=== PATIENT | male | born 1990 | race Two or more races ===

== ENCOUNTER → 2021-02-01 11:10 | Outpatient (BNVA) | payer MEDICAID, SELFPAY | PROVIDERS: PCP Nurse Practitioner Family; Visit Provider Psychiatry & Neurology Neurology ==

== ENCOUNTER 2023-05-01 17:05 | Emergency (ER) | payer MEDICAID, SELFPAY ==
[2023-05-01 17:08] VITALS: BP 154/100; PULSE 122; RESP 18; TEMP 36.9; O2SAT 97; BMI 65.0
--- NOTE | 2023-05-01 17:08 | ED.GENADULT ---
HPI - General Adult General Chief complaint: Arrhythmia/Palpitations Stated complaint: heart palpitations Time Seen by Provider: 05/01/23 22:16 Source: patient Mode of arrival: ambulatory Limitations: no limitations History of Present Illness HPI narrative: 32-year-old male with history of hypertension presents with palpitations. Patient has been monitoring his blood pressure and heart rate at home. Been elevated. Has been compliant with his losartan and has amlodipine. Denies any chest pain, shortness breath or lightheadedness. Patient describes his symptoms more as an unoriented rather than severe. He notices worse at night. There is no clear relieving or exacerbating features. Patient also notes a vibration sense in his neck and head. Patient denies any headache, vision changes or focal neurologic deficits. Related Data Home Medications Medication Instructions Recorded Confirmed amlodipine 10 mg tablet 10 mg PO DAILY 02/01/21 losartan 100 mg tablet 100 mg PO DAILY 02/01/21 Previous Rx's Medication Instructions Recorded metoprolol tartrate 25 mg tablet 12.5 mg PO BID #20 tabs 05/01/23 Allergies Allergy/AdvReac Type Severity Reaction Status Date / Time No Known Allergies Allergy Verified 02/01/21 11:12 Review of Systems Review of Systems: CONSTITUTIONAL: Denies weight loss, fever and chills. HEENT: Denies changes in vision and hearing. RESPIRATORY: Denies SOB and cough. CV: + palpitations - CP. GI: Denies abdominal pain, nausea, vomiting and diarrhea. : Denies dysuria and urinary frequency. MSK: Denies myalgia and joint pain. SKIN: Denies rash and pruritus. NEUROLOGICAL: Denies headache and syncope. PSYCHIATRIC: Denies recent changes in mood. Denies anxiety and depression. All other ROS are negative unless in HPI [facility] Social History Social History Alcohol intake: never Advance Directives: No Advance Directives Information Provided: Yes Physical Exam ED Vital Signs: Vital Signs - 24 hr 05/01/23 17:08 05/01/23 21:47 Temperature 98.4 F 98.7 F Pulse Rate 122 H 112 H Respiratory Rate 18 20 Blood Pressure 154/100 H 134/96 H Pulse Oximetry 97 97 Oxygen Delivery Method Room Air Room Air BMI result Body Mass Index 65.0 GEN: Well developed, no acute distress, alert, oriented HEENT: Normocephalic, atraumatic, normal external ears, nose appears normal, no oropharyngeal edema or exudates Eyes: Normal to appearance Neck: Supple, no lymphadenopathy Respiratory: Talks in complete sentences, no respiratory distress, clear to auscultation bilaterally Cardiovascular: Regular rate and rhythm, no murmurs rubs or gallops Abdomen: Soft, nontender, nondistended, no guarding, no rebound Back: No CVA tenderness Extremities: No clubbing cyanosis or edema Neurologic: No focal neurologic deficits, cranial nerves 2-12 intact, strength is 5/5 bilaterally Skin: No rash Course Course Course Narrative: This is an RME: Additional HPI, ROS, PE not included below will be deferred to primary provider. Patient is a 32 year old male presenting from the [facility] [place] with palpitations that started yesterday. He states that he can feel his heart racing and palpitations in his neck. Plan: labs, EKG Reevaluation(s) Reevaluation #1: The workup is complete. Laboratory analysis not reveal any evidence of anemia, significant electrolyte abnormality. Cardiac monitoring did not identify any significant cardiac dysrhythmia. He remains in sinus tachycardia intermittently with normal sinus rate. Patient will follow-up with his primary care provider for reassessment of blood pressure and heart rate. In the meantime, I have recommend patient starting on metoprolol 12.5 mg twice daily. He can continue to monitor his blood pressure and heart rate. If his blood pressure and heart rate remain elevated, he can go ahead and increase that to 25 mg twice daily. I provided the patient with a 10 day regimen. Time: 22:56 Medical Decision Making Medical Decision Making MDM Narrative: 32-year-old male with hypertension presents with palpitations and elevated blood pressure readings. Examination is benign. EKG shows a sinus tachycardia. Differential diagnosis is sinus tachycardia, cardiac dysrhythmia such as atrial fibrillation, atrial flutter, SVT, hypertensive urgency. Plan will be to do routine laboratory analysis to rule out renal dysfunction, anemia, electrolyte abnormalities. Will place patient on a dehydrator operator while in the emergency department to assess for any cardiac dysrhythmia. He is noted to be elevated blood pressure and heart rate is approximately 100 and 105. Will provide patient with metoprolol 25 mg orally. Disposition is pending full workup. Patient may require hospitalization. Differential Diagnosis Differential Diagnoses: The differential diagnosis associated with the presentation includes (See above) Admission/Observation Consideration of admission/observation: Escalation of care including admission/observation considered Lab Data MDM Lab Attestation statement: I reviewed the patient's lab results. 05/01/23 17:32 05/01/23 17:32 Labs: Lab Results 05/01/23 05/01/23 05/01/23 Range/Units 17:32 17:32 17:32 WBC 9.1 (4.8-10.8) X10*3/uL RBC 5.16 (4.60-5.80) X10*6/uL Hgb 15.3 (14.0-18.0) g/dl Hct 44.4 (42.0-52.0) % MCV 86.0 (80.0-98.0) fL MCH 29.7 (27.0-33.0) pg MCHC 34.5 (31.0-36.0) g/dl RDW 12.4 (11.0-16.0) % Plt Count 344 (160-400) X10*3/uL MPV 10.1 (9.4-12.4) fL Immature Gran % (Auto) 0.3 (0.0-0.4) % Neut % (Auto) 65.7 (45-73) % Lymph % (Auto) 22.8 (20-40) % [place] % (Auto) 10.1 (2-11) % Eos % (Auto) 0.9 (0-4) % Baso % (Auto) 0.2 (0-2) % Lymph # (Auto) 2.1 (1.2-4.9) X10*3/uL [place] # (Auto) 0.9 (0.1-1.2) X10*3/uL Eos # (Auto) 0.1 (0.0-0.4) X10*3/uL Baso # (Auto) 0.0 (0.0-0.2) X10*3/uL Abs Immat Gran (auto) 0.03 (0.00-0.03) X10*3/uL Absolute Neuts (auto) 6.0 (2.0-8.3) x10*3/uL Absolute Nucleated RBC 0.000 (0.0-0.012) X10*3/uL Nucleated RBC % (auto) 0.0 (0.0-0.2) /100WBC D-Dimer High Sensitivty < 150 NG/ML Sodium 138 (135-145) mmol/L Potassium 3.9 (3.3-5.1) mmol/L Chloride 105 (96-108) mmol/L Carbon Dioxide 25 (22-29) mmol/L Anion Gap 12 (12-20) BUN 12 (9-16) mg/dL Creatinine 0.97 (0.5-1.4) mg/dL Estim Creat Clear Calc 181.7 Estimated GFR > 60 Random Glucose 112 (60-115) mg/dL Calcium 9.6 (8.4-10.2) mg/dL Magnesium 2.1 (1.6-2.6) mg/dL Total Bilirubin 0.9 (0.0-1.0) mg/dL AST 42 H (5-37) U/L ALT 78 H (0-40) U/L Alkaline Phosphatase 87 (39-117) U/L Troponin I High Sens (<3.5-35.0) ng/L B-Natriuretic Peptide (<100) pg/mL Total Protein 8.2 H (6.5-8.0) g/dL Albumin 4.1 (3.5-5.0) g/dL 05/01/23 05/01/23 Range/Units 17:32 17:32 WBC (4.8-10.8) X10*3/uL RBC (4.60-5.80) X10*6/uL Hgb (14.0-18.0) g/dl Hct (42.0-52.0) % MCV (80.0-98.0) fL MCH (27.0-33.0) pg MCHC (31.0-36.0) g/dl RDW (11.0-16.0) % Plt Count (160-400) X10*3/uL MPV (9.4-12.4) fL Immature Gran % (Auto) (0.0-0.4) % Neut % (Auto) (45-73) % Lymph % (Auto) (20-40) % [place] % (Auto) (2-11) % Eos % (Auto) (0-4) % Baso % (Auto) (0-2) % Lymph # (Auto) (1.2-4.9) X10*3/uL [place] # (Auto) (0.1-1.2) X10*3/uL Eos # (Auto) (0.0-0.4) X10*3/uL Baso # (Auto) (0.0-0.2) X10*3/uL Abs Immat Gran (auto) (0.00-0.03) X10*3/uL Absolute Neuts (auto) (2.0-8.3) x10*3/uL Absolute Nucleated RBC (0.0-0.012) X10*3/uL Nucleated RBC % (auto) (0.0-0.2) /100WBC D-Dimer High Sensitivty NG/ML Sodium (135-145) mmol/L Potassium (3.3-5.1) mmol/L Chloride (96-108) mmol/L Carbon Dioxide (22-29) mmol/L Anion Gap (12-20) BUN (9-16) mg/dL Creatinine (0.5-1.4) mg/dL Estim Creat Clear Calc Estimated GFR Random Glucose (60-115) mg/dL Calcium (8.4-10.2) mg/dL Magnesium (1.6-2.6) mg/dL Total Bilirubin (0.0-1.0) mg/dL AST (5-37) U/L ALT (0-40) U/L Alkaline Phosphatase (39-117) U/L Troponin I High Sens 3.4 (<3.5-35.0) ng/L B-Natriuretic Peptide < 10 (<100) pg/mL Total Protein (6.5-8.0) g/dL Albumin (3.5-5.0) g/dL Independent Interpretation I performed an independent interpretation of an: EKG (Sinus tachycardia heart rate 105, normal intervals, no acute ST elevations or depressions.) Prescription Management I considered prescription management with: Other (Antihypertensive) Chronic Conditions Patient?s care impacted by: Hypertension Discharge Plan Discharge Clinical Impression: Palpitations Patient Disposition: Home, Self-Care Instructions: Heart Palpitations (ED) Prescriptions: New metoprolol tartrate 25 mg tablet 12.5 mg PO BID Qty: 20 0RF No Action losartan 100 mg tablet 100 mg PO DAILY amlodipine 10 mg tablet 10 mg PO DAILY Referrals: Elicia Hanson [Primary Care Provider] - 3 days (HR and BP measurement)
--- NOTE | 2023-05-01 17:09 | ECG_ITS ---
Test Reason : TACHYCARDIA Blood Pressure : / mmHG Vent. Rate : 105 BPM Atrial Rate : 105 BPM P-R Int : 182 ms QRS Dur : 092 ms QT Int : 326 ms P-R-T Axes : 028 010 026 degrees QTc Int : 430 ms Sinus tachycardia Otherwise normal ECG No previous ECGs available Referred By: Berny Ordaz Electronically Signed By:ODALYS DORSEY
[2023-05-01 17:39] LABS: MANUAL DIFF FLAG NO
[2023-05-01 17:42] LABS: Basophils Percent Auto 0.2 % (0-2); Eosinophils Absolute Auto 0.1 X10*3/uL (0.0-0.4); Eosinophils Percent Auto 0.9 % (0-4); Hematocrit 44.4 % (42.0-52.0); Hemoglobin 15.3 g/dl (14.0-18.0); Imm Gran Abs Auto 0.03 X10*3/uL (0.00-0.03); Imm Gran Pct Auto 0.3 % (0.0-0.4); Lymphocytes Absolute Auto 2.1 X10*3/uL (1.2-4.9); Lymphocytes Percent Auto 22.8 % (20-40); Mean Corpuscular HGB Conc 34.5 g/dl (31.0-36.0); Mean Corpuscular Hemoglobin 29.7 pg (27.0-33.0); Mean Platelet Volume 10.1 fL (9.4-12.4); Monocytes Absolute Auto 0.9 X10*3/uL (0.1-1.2); Monocytes Percent Auto 10.1 % (2-11); Neutrophils Percent Auto 65.7 % (45-73); Platelet Count 344 X10*3/uL (160-400); Red Blood Count 5.16 X10*6/uL (4.60-5.80); Red Cell Distribution Width 12.4 % (11.0-16.0); White Blood Count 9.1 X10*3/uL (4.8-10.8)
[2023-05-01 17:56] LABS: Alanine Aminotransferase 78 U/L (0-40); Albumin Level 4.1 g/dL (3.5-5.0); Alkaline Phosphatase 87 U/L (39-117); Anion Gap 12 (12-20); Aspartate Amino Transferase 42 U/L (5-37); Bilirubin Total 0.9 mg/dL (0.0-1.0); Blood Urea Nitrogen 12 mg/dL (9-16); Calcium 9.6 mg/dL (8.4-10.2); Carbon Dioxide 25 mmol/L (22-29); Chloride 105 mmol/L (96-108); Creatinine Clr Calc Pharmacy 181.7; Estimated Glomerular Filt Rate > 60; Glucose Random 112 mg/dL (60-115); Magnesium 2.1 mg/dL (1.6-2.6); Potassium 3.9 mmol/L (3.3-5.1); Sodium 138 mmol/L (135-145); Total Protein 8.2 g/dL (6.5-8.0)
[2023-05-01 18:01] LABS: B Type Natriuretic Peptide < 10 pg/mL (<100)
[2023-05-01 18:03] LABS: Troponin-I High Sensitivity 3.4 ng/L (<3.5-35.0)
[2023-05-01 18:22] LABS: D Dimer High Sensitivity < 150 NG/ML
[2023-05-01 21:47] VITALS: BP 134/96; PULSE 112; RESP 20; TEMP 37.1; O2SAT 97
--- NOTE | 2023-05-01 21:48 | PC.NURSE ---
this rn assumed care of pt @ [id number] from waiting room. pt placed on property assessment monitor. pt changed into hospital gown awaiting to be seen by ed provider
[2023-05-01 22:53] VITALS: BP 162/99; PULSE 92
[2023-05-01] MEDS: Metoprolol Tartrate 25 MG TABLET PO (22:53)
[2023-05-01 23:35] VITALS: BP 134/86; PULSE 98; RESP 26; O2SAT 95
--- NOTE | 2023-05-01 23:41 | PC.NURSE ---
pt calm and cooperative. vss. pt ambulatory at discharge. pt provided with discharge packet. pt verbalized understanding of discharge plan
== END 2023-05-01 23:43 | disposition home or self-care (01) ==
PROVIDERS: Physician Assistant; Emergency Provider Emergency Medicine; PCP Nurse Practitioner Family
DX: R00.2 Palpitations (principal); R00.0 Tachycardia, unspecified; I10 Essential (primary) hypertension; E66.9 Obesity, unspecified; Z68.44 Body mass index [BMI] 60.0-69.9, adult; Z79.899 Other long term (current) drug therapy
CPT/HCPCS: 36415; 80053; 83735; 83880; 84484; 85025; 85379; 93005; 99284

== ENCOUNTER 2023-06-30 15:42 | Emergency (ER) | payer MEDICAID, SELFPAY ==
--- NOTE | ~2023-06-30 | XR_ITS ---
EXAMINATION: XR chest 2V CLINICAL INFORMATION: Chest pain COMPARISON: No prior chest x-ray available in our system for comparison at the time of this dictation. TECHNIQUE: XR chest 2V, 2 Views, exam limited soft tissue overlap motion artifact on lateral view. Lungs and Blanca: Both lungs are clear. Pleura: Normal. Costophrenic angles are sharp. No pneumothorax. Heart: The heart is normal in size. Mediastinum: The mediastinum is within normal limits.. Bones: Skeletal structures included are normal for patient's age. XR/XR chest 2V IMPRESSION: Limited this study motion artifact soft tissue overlap. No radiographic evidence of acute cardiopulmonary disease.
--- NOTE | 2023-06-30 15:45 | ECG_ITS ---
Test Reason : CHEST PAIN Blood Pressure : / mmHG Vent. Rate : 105 BPM Atrial Rate : 105 BPM P-R Int : 178 ms QRS Dur : 090 ms QT Int : 352 ms P-R-T Axes : 019 008 029 degrees QTc Int : 465 ms Sinus tachycardia artifact Otherwise normal ECG When compared with ECG of 01-MAY-2023 17:38, No significant changes seen Referred By: Tatiana Wooten Electronically Signed By:JAYLIN GARDUNO MD
[2023-06-30 15:58] VITALS: BP 181/104; PULSE 114; RESP 17; TEMP 37.1; O2SAT 98; BMI 63.3
--- NOTE | 2023-06-30 15:59 | ED_ITS ---
HPI - Chest Pain General Chief Complaint: Chest Pain Stated Complaint: Chest tightness, high blood pressure Time Seen by Provider: 06/30/23 21:18 Source: patient Mode of arrival: ambulatory Limitations: no limitations History of Present Illness HPI narrative: Patient is a 32 year old assigned male at with a history of HTN presenting to the emergency department today with palpitations. Patient states that he was seen for this a little while ago and was started on Metoprolol. Patient states that was initially helping but now it doesn't seem to be. Patient denies any dizziness, lightheadedness, abdominal pain, nausea, vomiting, fever, chills, blurry vision, double vision, loss of vision, chest pain, difficulty breathing, shortness of breath, back pain, night sweats, pain with urination, increased urinary frequency, increased urinary urgency, blood in his urine or stool, syncope or a near syncopal episode, recent trauma or falls, bowel incontinence, bladder incontinence, bowel retention, bladder retention, or any other complaints at this time. Treatment prior to arrival: none Related Data Home Medications Medication Instructions Recorded Confirmed amlodipine 10 mg tablet 10 mg PO DAILY 02/01/21 losartan 100 mg tablet 100 mg PO DAILY 02/01/21 Previous Rx's Medication Instructions Recorded metoprolol tartrate 25 mg tablet 12.5 mg (1/2 x 25 mg) PO BID #20 05/01/23 tabs metoprolol succinate 50 mg 50 mg PO DAILY #30 tabs 06/30/23 tablet,extended release 24 hr Allergies Allergy/AdvReac Type Severity Reaction Status Date / Time No Known Allergies Allergy Verified 02/01/21 11:12 Review of Systems 2 Constitutional: Constitutional: Reports no additional constitutional complaints, Denies chills, Denies fever(s) and Denies night sweats Eyes: Eyes: Reports no additional eye complaints, Denies blurry vision, Denies change in vision, Denies diplopia, Denies eye discharge, Denies loss of vision and Denies eye pain ENT: Denies dizziness Cardiovascular: Cardiovascular: Reports no additional cardiovascular complaints, Denies chest pain, Denies lightheadedness, Denies Loss of Consciousness, Reports palpitations and Denies dyspnea Respiratory: Respiratory: Reports no additional respiratory complaints and Denies dyspnea Gastrointestinal: Gastrointestinal: Reports no additional gastrointestinal complaints, Denies abdominal pain, Denies melena, Denies hematochezia, Denies change in bowel habits and Denies change in stool character Genitourinary: Genitourinary: Reports no additional male genitourinary complaints, Denies hematuria, Denies oliguria, Denies difficulty urinating, Denies dysuria, Denies urinary frequency, Denies urinary hesitancy, Denies urinary incontinence and Denies urinary urgency Musculoskeletal: Musculoskeletal: Reports no additional musculoskeletal complaints, Denies numbness and Denies tingling Neurologic: Denies dizziness, Denies loss of vision, Denies numbness and Denies tingling Psychiatric: Psychiatric: Reports no additional psychiatric complaints Endocrine: Endocrine: Reports no additional endocrine complaints and Reports palpitations Hematologic/Lymphatic: Hematologic/Lymphatic: Reports no additional hematologic/lymphatic complaints Allergic/Immunologic: Allergic/Immunologic: Reports no additional allergic/immunologic complaints PMFSH Past Medical History Attestation statement: The following information was validated with the patient. Source: old records reviewed and nursing notes reviewed Social History Social History Alcohol intake: never Advance Directives: No Advance Directives Information Provided: Yes Physical Exam 2 Vital Signs: Vital Signs: Last Vital Signs Temp 99.2 F 06/30/23 21:49 Pulse 86 06/30/23 21:49 Resp 18 06/30/23 21:49 BP 178/99 H 06/30/23 21:49 Pulse Ox 99 06/30/23 21:49 O2 Del Method Room Air 06/30/23 21:49 BMI result Body Mass Index 63.3 Const: General: cooperative, no acute distress, alert and awake Nutritional Appearance: well nourished Orientation/consciousness: patient oriented x3 Limitations: no limitations HEENT: Head: Yes normal to inspection and Yes atraumatic Ears: hearing grossly normal bilaterally and external ears normal General nose exam: Normal external nose present, no nasal discharge noted and no epistaxis Face and sinus: Yes normal facial exam, No abrasion and No laceration Mouth: Normal oral and palatal mucosa present, no drooling and no muffled voice Eyes: General: appearance normal, both eyes and all related structures P eriorbital: periorbital findings normal Eyelids: Yes eyelids normal C onjunctivae: conjunctivae normal Pupils: Equal, round and reactive pupils present EOM: EOMs intact bilaterally Neck: Neck: Yes normal visual inspection, Yes full ROM and Yes no lymphadenopathy Chest: Chest palpation & inspection: normal inspection of the chest Resp: Effort & Inspection: normal respiratory effort and able to speak in complete sentences Auscultation: clear to auscultation bilaterally Cardio: Rate: regular rate Rhythm: regular rhythm GI: Inspection: Yes normal to inspection Neuro: General: patient oriented x3 and moves all extremities Cranial nerves: Yes Equal, round and reactive pupils present Cognition (Neuro): n ormal cognition Motor exam (neuro): 5/5 motor strength present throughout Sensory Exam: Normal double simultaneous stimulation for sensation C oordination: [id number] test normal Extrem: General: Yes normal to inspection, Yes full ROM and Yes capillary refill normal Psych: Appearance: grossly normal Mental Status: mental status grossly normal Affect: normal affect Attitude: cooperative Thought process: N ormal thought process present Thought content: Normal thought content present Insight: Good insight present (Psych) Course Course Course Narrative: This is a rapid medical exam. Deferred additional HPI, ROS, PE to primary provider. 32 yo male with history of obesity, HTN here with complaints of chest tightness x 3 days. Has been working on managing blood pressure with his PCP. Will obtain labs, EKG, CXR VSS Medications Administered Discontinued Medications Generic Name Dose Route Start Last Admin Trade Name Freq PRN Reason Stop Dose Admin Metoprolol Tartrate 25 mg 06/30/23 21:41 06/30/23 21:53 Metoprolol Tartrate 25 Mg Tablet PO 06/30/23 21:42 25 mg ONCE ONE Administration Protocol Medical Decision Making Medical Decision Making MDM Narrative: Patient is a 32 year old assigned male at with a history of HTN presenting to the emergency department today with palpitations. Patient's physical exam was unremarkable. Patient's blood work was unremarkable. Patient's EKG was unremarkable. Patient's chest x-ray showed no acute process. Patient was taking 12.5mg of Metoprolol Tartrate. I consulted with my attending physicain Dr. Sabina Kumar and together we determined that the best course of action for this patient would be switching him to Metoprolol Succinate 50mg PO Daily. I explained my physical exam findings as well as all test results to the patient. I answered all questions asked by the patient. I stressed the importance of the patient taking his medication as prescribed. I stressed the importance of the patient following up with his primary care provider and a ceramic tile installation helper. I stressed the importance of the patient returning to the emergency department immediately if his symptoms were to worsen or if he were to develop any dizziness, shortness of breath, difficulty breathing, chest pain, blurry vision, loss of vision, nausea, vomiting, abdominal pain, fever, chills, back pain, or any other complaints. Patient verbalized agreement and understanding with this treatment plan and discharge. Differential Diagnosis Differential Diagnoses: The differential diagnosis associated with the presentation includes Palpitations Arrhythmia NSTEMI STEMI Admission/Observation Consideration of admission/observation: Escalation of care including admission/observation considered Patient would have been admitted to the hospital had his work up had any findings where hospital admission was appropriate and his clinical presentation warranted hospital admission. Lab Data MDM Lab Attestation statement: I reviewed the patient's lab results. My interpretation of these studies and their corresponding values is that they are grossly normal. 06/30/23 16:35 06/30/23 16:35 Labs: Lab Results 06/30/23 Range/Units 16:35 WBC 8.9 (4.8-10.8) X10*3/uL RBC 5.18 (4.60-5.80) X10*6/uL Hgb 15.3 (14.0-18.0) g/dl Hct 44.3 (42.0-52.0) % MCV 85.5 (80.0-98.0) fL MCH 29.5 (27.0-33.0) pg MCHC 34.5 (31.0-36.0) g/dl RDW 12.4 (11.0-16.0) % Plt Count 341 (160-400) X10*3/uL MPV 10.5 (9.4-12.4) fL Immature Gran % (Auto) 0.2 (0.0-0.4) % Neut % (Auto) 61.6 (45-73) % Lymph % (Auto) 26.7 (20-40) % [place] % (Auto) 9.9 (2-11) % Eos % (Auto) 1.2 (0-4) % Baso % (Auto) 0.4 (0-2) % Lymph # (Auto) 2.4 (1.2-4.9) X10*3/uL [place] # (Auto) 0.9 (0.1-1.2) X10*3/uL Eos # (Auto) 0.1 (0.0-0.4) X10*3/uL Baso # (Auto) 0.0 (0.0-0.2) X10*3/uL Abs Immat Gran (auto) 0.02 (0.00-0.03) X10*3/uL Absolute Neuts (auto) 5.5 (2.0-8.3) x10*3/uL Absolute Nucleated RBC 0.000 (0.0-0.012) X10*3/uL Nucleated RBC % (auto) 0.0 (0.0-0.2) /100WBC Sodium 137 (135-145) mmol/L Potassium 3.7 (3.3-5.1) mmol/L Chloride 105 (96-108) mmol/L Carbon Dioxide 21 L (22-29) mmol/L Anion Gap 15 (12-20) BUN 10 (9-16) mg/dL Creatinine 0.93 (0.5-1.4) mg/dL Estim Creat Clear Calc 192.1 Estimated GFR > 60 Random Glucose 116 H (60-115) mg/dL Calcium 9.7 (8.4-10.2) mg/dL Total Bilirubin 0.7 (0.0-1.0) mg/dL Direct Bilirubin 0.3 (0.0-0.5) mg/dL AST 41 H (5-37) U/L ALT 79 H (0-40) U/L Alkaline Phosphatase 90 (39-117) U/L Troponin I High Sens < 2.7 (<3.5-35.0) ng/L Total Protein 8.0 (6.5-8.0) g/dL Albumin 4.1 (3.5-5.0) g/dL Independent Interpretation I performed an independent interpretation of an: EKG and Plain X-Ray Interpretation: My interpretation is in agreement with the radiologist's impression of this imaging study. - EXAMINATION: XR chest 2V CLINICAL INFORMATION: Chest pain COMPARISON: No prior chest x-ray available in our system for comparison at the time of this dictation. TECHNIQUE: XR chest 2V, 2 Views, exam limited soft tissue overlap motion artifact on lateral view. Lungs and Blanca: Both lungs are clear. Pleura: Normal. Costophrenic angles are sharp. No pneumothorax. Heart: The heart is normal in size. Mediastinum: The mediastinum is within normal limits.. Bones: Skeletal structures included are normal for patient's age. XR/XR chest 2V IMPRESSION: Limited this study motion artifact soft tissue overlap. No radiographic evidence of acute cardiopulmonary disease. Dictated By: Ricky Edmonds MD Signed By: Electronically signed by Ricky Edmonds MD 06/30/23 1627 - Vent. Rate: 105 BPM Atrial Rate: 105 BPM P-R Int: 178 ms QRS Dur: 090 ms QT Int: 352 ms P-R-T Axes: 019 008 029 degrees QTc Int: 465 ms Sinus tachycardia Cannot rule out Inferior infarct , age undetermined Cannot rule out Anterior infarct , age undetermined T wave abnormality, consider lateral ischemia Abnormal ECG When compared with ECG of 01-MAY-2023 17:38, T wave inversion now evident in Anterior leads DD/ 1550 Radiology Impression Discussion of test interpretation with radiology: I have reviewed the radiologist's reading. Discharge Plan Discharge Clinical Impression: Palpitations Patient Disposition: Home, Self-Care Instructions: Heart Palpitations (DC) Additional Instructions: Follow up with your primary care provider and a ceramic tile installation helper. Return to the emergency department immediately if your symptoms worsen or if you develop any dizziness, shortness of breath, difficulty breathing, chest pain, blurry vision, loss of vision, nausea, vomiting, abdominal pain, fever, chills, back pain, or any other complaints. Prescriptions: New metoprolol succinate 50 mg tablet extended release 24 hr 50 mg PO DAILY Qty: 30 0RF No Action metoprolol tartrate 25 mg tablet 12.5 mg PO BID Qty: 20 0RF losartan 100 mg tablet 100 mg PO DAILY amlodipine 10 mg tablet 10 mg PO DAILY Referrals: [facility] [Provider Group] (Call to establish and follow up with a ceramic tile installation helper.) Norma Vasquez MD [Primary Care Provider] - Stand Alone Forms: Work/School Release Interventions: ED Discharge Assessment Last Done: 06/30/23 21:54 Discharge Date/Time: 06/30/23 21:56 Print Language: Slovak
[2023-06-30 16:53] LABS: MANUAL DIFF FLAG NO
[2023-06-30 17:11] LABS: Alanine Aminotransferase 79 U/L (0-40); Albumin Level 4.1 g/dL (3.5-5.0); Alkaline Phosphatase 90 U/L (39-117); Anion Gap 15 (12-20); Aspartate Amino Transferase 41 U/L (5-37); Bilirubin Direct 0.3 mg/dL (0.0-0.5); Bilirubin Total 0.7 mg/dL (0.0-1.0); Blood Urea Nitrogen 10 mg/dL (9-16); Calcium 9.7 mg/dL (8.4-10.2); Carbon Dioxide 21 mmol/L (22-29); Chloride 105 mmol/L (96-108); Creatinine Clr Calc Pharmacy 192.1; Estimated Glomerular Filt Rate > 60; Glucose Random 116 mg/dL (60-115); Potassium 3.7 mmol/L (3.3-5.1); Sodium 137 mmol/L (135-145)
[2023-06-30 17:14] LABS: Basophils Percent Auto 0.4 % (0-2); Eosinophils Absolute Auto 0.1 X10*3/uL (0.0-0.4); Eosinophils Percent Auto 1.2 % (0-4); Hematocrit 44.3 % (42.0-52.0); Hemoglobin 15.3 g/dl (14.0-18.0); Imm Gran Abs Auto 0.02 X10*3/uL (0.00-0.03); Imm Gran Pct Auto 0.2 % (0.0-0.4); Lymphocytes Absolute Auto 2.4 X10*3/uL (1.2-4.9); Lymphocytes Percent Auto 26.7 % (20-40); Mean Corpuscular HGB Conc 34.5 g/dl (31.0-36.0); Mean Corpuscular Hemoglobin 29.5 pg (27.0-33.0); Mean Corpuscular Volume 85.5 fL (80.0-98.0); Mean Platelet Volume 10.5 fL (9.4-12.4); Monocytes Absolute Auto 0.9 X10*3/uL (0.1-1.2); Monocytes Percent Auto 9.9 % (2-11); Neutrophils Absolute Auto 5.5 x10*3/uL (2.0-8.3); Neutrophils Percent Auto 61.6 % (45-73); Platelet Count 341 X10*3/uL (160-400); Red Blood Count 5.18 X10*6/uL (4.60-5.80); Red Cell Distribution Width 12.4 % (11.0-16.0); White Blood Count 8.9 X10*3/uL (4.8-10.8)
[2023-06-30 17:19] LABS: Troponin-I High Sensitivity < 2.7 ng/L (<3.5-35.0)
[2023-06-30 20:03] VITALS: BP 175/106; PULSE 103; RESP 20; TEMP 36.5; O2SAT 99
[2023-06-30 21:49] VITALS: BP 178/99; PULSE 86; RESP 18; TEMP 37.3; O2SAT 99
[2023-06-30] MEDS: Metoprolol Tartrate 25 MG TABLET PO (21:53)
== END 2023-06-30 21:56 | disposition home or self-care (01) ==
PROVIDERS: Nurse Practitioner Family; Emergency Provider Emergency Medicine; PCP Student in an Organized Health Care Education/Training Program
DX: R00.2 Palpitations (principal); I10 Essential (primary) hypertension; R07.9 Chest pain, unspecified; E66.9 Obesity, unspecified; Z68.44 Body mass index [BMI] 60.0-69.9, adult
CPT/HCPCS: 36415; 71046; 80048; 80076; 84484; 85025; 93005; 99284

== ENCOUNTER 2023-08-16 12:43 | Outpatient (AMB) | payer MEDICAID, SELFPAY ==
--- NOTE | 2023-08-16 13:08 | A.OFFVIS_ITS ---
Intake Vital Signs 08/16/23 13:13 Height 5 ft 9 in Weight 427 lb 11.148 oz BMI 63.2 BP 140/90 H Blood Pressure Location Lt brachial Position Sitting Pulse 103 H Intake Visit Reasons: NPV/Palpitations/E. 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 He does not have any known cardiac issues including coronary disease or myocardial infarction or cardiomyopathy or in fact anything cardiac sounding. He is morbidly obese and weighs more than 400 lb. He has hypertension on medications. His main complaint is that he constantly feels his heart running fast/racing. This can happen any time and he can feel this way for hours. No documented arrhythmias in the past. Otherwise, he denies any anginal-type symptoms or shortness of breath or any other symptoms. His main concern is the palpitations. Otherwise, he is on appropriate medications for hypertension. Has not been evaluated in the past for PETER. [facility] Medical History (Updated 08/16/23 @ 13:29 by Obdulio Ball MD) Essential hypertension Surgical History (Updated 08/16/23 @ 13:12 by Sangeeta Sequeira) No pertinent past surgical history Family History (Updated 08/16/23 @ 13:13 by Sangeeta Sequeira) Mother No problems noted. Father No problems noted. Social History Alcohol intake: never Review of Systems Const Denies chills, Denies daytime sleepiness, Denies fatigue, Denies fever(s), Denies frequent falls, Denies night sweats, Denies snoring, Denies weakness, Denies weight gain and Denies weight loss Eyes Denies loss of vision ENT Denies hearing loss Card Denies chest pain with activity, Denies syncope, Denies edema, Denies claudication, Denies leg edema, Denies dyspnea, Denies dyspnea on exertion and Denies orthopnea Resp Denies cough, Denies excessive phlegm production, Denies dyspnea, Denies dyspnea on exertion, Denies snoring and Denies wheezing GI Denies abdominal pain, Denies hematochezia, Denies change in bowel habits, Denies change in stool character, Denies heartburn, Denies nausea and Denies vomiting Denies hematuria, Denies dysuria and Denies urinary frequency Musc Denies arthralgias, Denies muscle weakness, Denies numbness and Denies tingling Skin/Breast Denies nail changes and Denies rash Neuro Denies Abnormal speech present, Denies syncope, Denies frequent falls, Denies loss of vision, Denies memory loss, Denies numbness, Denies tingling and Denies weakness Psych Denies depression and Denies memory loss Endo Denies fatigue Aller/Immun Denies wheezing Physical Exam Vital Signs: Last Vital Signs Pulse 103 H 08/16/23 13:13 BP 140/90 H 08/16/23 13:13 BMI result Body Mass Index 63.2 Const General: comfortable and no acute distress Orientation/consciousness: patient oriented x3 HEENT Other: Unremarkable Head: Yes normal to inspection Neck Neck: Yes normal visual inspection Chest Chest palpation & inspection: normal inspection of the chest Resp Auscultation: clear to auscultation bilaterally Cardio Palpation: normal PMI Heart sounds: S1 normal heart sound present, S2 normal heart sound present, no gallops, no murmurs and no rubs GI Palpation (GI): Soft to palpation Back/Spine/Pelvis Other: unremarkable Skin General skin exam: no rashes or lesions noted Neuro General: patient oriented x3 Speech: No Abnormal speech present Extrem General: Yes normal to inspection Psych Mental Status: mental status grossly normal Assessment & Plan Assessment & Plan (1) Palpitations: Code(s): R00.2 - Palpitations (2) Obesity: Code(s): E66.9 - Obesity, unspecified Qualifiers: Obesity classification: adult class 3 (BMI >= 40) (3) Essential hypertension: Code(s): I10 - Essential (primary) hypertension Plan EKG from last month with mild sinus tachycardia at 105/min; no significant ST-T changes; normal IN and corrected QT. previous EKG from April also similar. Overall, possibly some sinus tachycardia related to obesity. He also needs evaluation for atrial arrhythmias like atrial fibrillation considering his obesity as well as hypertension. We will start an echocardiogram for cardiac assessment. Holter monitor can be completed. We will start with a 48 hour monitor but if necessary, can do something more prolonged. Also complete a home sleep study to evaluate for obstructive sleep apnea. Once these are completed, we can see him back in follow-up. He remains on beta- blockers and that can be continued. We can adjust dosing based on findings from above. Orders: Orders ECG holter monitor 48 hour Today R00.2 - Palpitations CA echo transthoracic complete Today E66.9 - Obesity, unspecified, I10 - Essential (primary) hypertension, R00.2 - Palpitations RT home sleep study Today G47.33 - Obstructive sleep apnea (adult) (pediatric) Coding Level of Care Code New Pt Level 4 (22257) Diagnoses Palpitations R00.2 Obesity E66.9 Obesity classification: adult class 3 (BMI >= 40) Essential hypertension I10
[2023-08-16 13:13] VITALS: BP 140/90; PULSE 103; BMI 63.2
== END 2023-08-16 13:37 | disposition home or self-care (01) ==
PROVIDERS: PCP Nurse Practitioner Family; Visit Provider Internal Medicine
DX: R00.2 Palpitations (principal); E66.9 Obesity, unspecified; I10 Essential (primary) hypertension
CPT/HCPCS: 99204

== ENCOUNTER → 2023-08-16 12:43 | Outpatient (BNVA) | payer MEDICAID, SELFPAY | PROVIDERS: PCP Nurse Practitioner Family; Visit Provider Internal Medicine | DX: R00.2 Palpitations (principal); I10 Essential (primary) hypertension; E66.9 Obesity, unspecified; Z68.44 Body mass index [BMI] 60.0-69.9, adult | CPT/HCPCS: 99202 ==

== ENCOUNTER → 2023-09-06 10:37 | Outpatient (REF) | payer MEDICAID, SELFPAY ==
--- NOTE | 2023-09-06 10:42 | CA_ITS ---
Transthoracic Echocardiogram Patient (Last, First, Middle): Duran Baca, Gender: Male Date of : 1990 Age: 33 Procedure Date: 09/06/2023 Procedure Type: Transthoracic Echocardiogram Location: OP Height: 172.72 cm Weight: 189.01 kg BSA: 2.79 m2 Heart Rate: 79 bpm BP: 120 / 90 mmHg Shore Working Supervisor: RICHARD Hermosillo MD: Obdulio Ball MD Aluminum Hydroxide Process Operator: Michael Perez MD Symptoms: R00.2 - Palpitations Study Quality: Fair ECG Rhythm: Sinus Conclusions: - 1. Normal LV ejection fraction 55-60% 2. Normal cardiac valvular Doppler 3. Upper limits of normal ascending aortic size Findings Left Ventricle Normal left ventricular size, thickness, and systolic function. The visually estimated ejection fraction is between 55-60%. Spectral Doppler is indicative of a normal filling pattern. Peak GLS is -16.4%, which is mildly reduced. Right Ventricle Normal right ventricular cavity size. Atria The left atrium is normal in size. Interatrial shunt cannot be excluded. The right atrium was not well visualized. Aortic Valve The aortic valve structure and function is likely normal. There is no aortic valve stenosis. There is no aortic valve regurgitation. Mitral Valve Likely normal mitral valve structure and function. There is no mitral valve regurgitation. There is no mitral valve stenosis. Pulmonic Valve The pulmonic valve was not well visualized. Tricuspid Valve Likely normal tricuspid valve structure and function. There is trace tricuspid valve regurgitation. Normal right atrial pressure. Great Vessels The pulmonary artery was not well visualized. Pericardium/Pleural The pericardium was not well visualized. Prior Study Comparison No prior study available for comparison. Measurements 2D Linear Measurements IVSd: 1.19 0.6-0.9/0.6-1.0 cm LVIDd: 5.21 3.9-5.3/4.2-5.9 cm LVIDd Index: 1.87 2.4-3.2/2.2-3.1 cm/m2 LVIDs: 3.42 2.0-3.6 cm LVPWd: 1.10 0.7-1.1 cm LA Diam: 3.90 2.7-3.8/3.0-4.0 cm LAIDs Index: 1.40 1.5-2.3 cm/m2 LV Mass: 291.67 67-162/88-224 g LV Mass Index: 104.54 43-95/49-115 g/m2 LVOT Diam: 1.90 3.0+(-)1.3 cm 2D Systolic Function EF 4C: 60.80 >55% EF 2C: 60.60 >55% EF BiP: 58.20 >55% Mitral Valve MV Pk E: 0.80 MV PK A: 0.77 MV Decel Time: 243.00 E/A: 1.00 E'Lateral: 7.83 E'Medial: 8.49 E/E' Med: 9.40 E/E' Lat: 10.20 PHT: 71.00 MVA PHT: 3.10 Decel [place]: 3.28 Aortic Valve AoV Pk Jimbo: 1.34 AoV Mn Jimbo: 0.98 AoV VTI: 0.26 AoV Pk Grad: 7.00 Aov Mn Grad: 4.00 EDEN Cont.VTI: 2.19 LVOT LVOT Pk Jimbo: 0.97 LVOT Mn Jimbo: 0.74 LVOT VTI: 0.20 LVOT Pk Grad: 4.00 LVOT Mn Grad: 2.00 LVOT Diam: 1.90 LVOT Area: 2.84 Diastolic Function MV Pk E: 0.80 MV Pk A: 0.77 E/A: 1.00 E'Medial: 8.49 E/E' Med: 9.40 E' Laterial: 7.83 E/E' Lat: 10.20 Right Ventricle TAPSE (mm): 26.30 TVS' Jimbo: 13.70 Tricuspid Valve TR Pk Jimbo: 2.19 TR Pk Grad: 19.00 Great Vessels Aorta Sinus of Valsalva: 3.40 2.0-3.5 cm Ao Asc: 3.60 2.1-3.4 cm Pulmonary Valve PV Pk Jimbo: 1.28 Peak PV Grad: 7.00 Updated in Other Vendor System with Status of Final Michael Perez MD electronically signed on 09/07/2023 10:01:13 AM with status of Final
--- NOTE | 2023-09-06 10:42 | HM_ITS ---
* Total monitoring time 2 days. * Underlying rhythm is sinus with an average rate of 83/Min. Range 68 to 134/Min. * Rare supraventricular ectopy. * Rare ventricular ectopy. One triplet. * No significant pauses or AV blocks. * No patient markers or events in diary. MTDD
== END ==
LOC: HO.CARD 10:37
PROVIDERS: PCP Nurse Practitioner Family; Visit Provider Internal Medicine
DX: R00.2 Palpitations (principal); I10 Essential (primary) hypertension; E66.9 Obesity, unspecified
CPT/HCPCS: 93225; 93306; 93356

== ENCOUNTER → 2023-09-06 10:42 | Outpatient (BNV) | payer MEDICAID, SELFPAY | PROVIDERS: PCP Nurse Practitioner Family; Visit Provider Internal Medicine Cardiovascular Disease | DX: I47.10 Supraventricular tachycardia, unspecified (principal) | CPT/HCPCS: 93227; 93306 ==

== ENCOUNTER 2023-09-11 10:53 | Outpatient (REF) | payer MEDICAID, SELFPAY ==
[2023-09-11 13:18] LABS: Hematocrit 43.1 % (42.0-52.0); Hemoglobin 14.5 g/dl (14.0-18.0); Mean Corpuscular HGB Conc 33.6 g/dl (31.0-36.0); Mean Corpuscular Hemoglobin 30.2 pg (27.0-33.0); Mean Corpuscular Volume 89.8 fL (80.0-98.0); Mean Platelet Volume 10.6 fL (9.4-12.4); Platelet Count 316 X10*3/uL (160-400); Red Cell Distribution Width 13.2 % (11.0-16.0); White Blood Count 8.2 X10*3/uL (4.8-10.8)
[2023-09-11 13:32] LABS: Estimated Average Glucose 105 mg/dL; Hemoglobin A1c % 5.3 % (<6.0)
[2023-09-11 13:42] LABS: Alanine Aminotransferase 63 U/L (0-40); Albumin Level 3.9 g/dL (3.5-5.0); Alkaline Phosphatase 79 U/L (39-117); Anion Gap 14 (12-20); Aspartate Amino Transferase 32 U/L (5-37); Bilirubin Total 0.9 mg/dL (0.0-1.0); Blood Urea Nitrogen 15 mg/dL (9-16); Calcium 9.5 mg/dL (8.4-10.2); Carbon Dioxide 28 mmol/L (22-29); Chloride 103 mmol/L (96-108); Cholesterol 179 mg/dL (<200); Estimated Glomerular Filt Rate > 60; Glucose Random 122 mg/dL (60-115); HDL Cholesterol 43 mg/dL (>40); LDL Cholesterol Calculated 114 mg/dL (<100); Sodium 141 mmol/L (135-145); Total Protein 7.8 g/dL (6.5-8.0); Triglycerides 110 mg/dL (<150)
[2023-09-11 13:49] LABS: TSH reflex Free T4 2.21 uIU/mL (0.32-4.0); Vitamin D 25-OH Total 24.8 ng/mL (>30)
[2023-09-11 14:10] LABS: Syphilis Screen Nonreactive (Nonreactive)
[2023-09-11 14:13] LABS: Folate 6.4 ng/mL (> or = 4.0)
[2023-09-12 08:12] LABS: HBS Num1 0.16 mIU/mL (0-7.99); HBc Num1 0.12 S/CO (0.00-0.79); HIV AB/AG Nonreactive (Nonreactive); HIV Num 1 0.06 S/CO (0.00-0.99); Hepatitis B Core Antibody Nonreactive (Nonreactive); Hepatitis B Surface Antigen Negative (Negative); ~HepC Num1 0.09 S/CO (0.00-0.79); ~Hepatitis B Surface Antibody NONREACTIVE (Nonreactive); ~Hepatitis C Antibody Nonreactive (Nonreactive)
[2023-09-13 14:41] LABS: Vitamin B12 342 pg/mL (200-900)
== END 2023-09-11 10:54 | disposition home or self-care (01) ==
LOC: HO.HHCL 10:53
PROVIDERS: Visit Provider Student in an Organized Health Care Education/Training Program
DX: Z00.00 Encounter for general adult medical examination without abnormal findings (principal); Z11.4 Encounter for screening for human immunodeficiency virus [HIV]
CPT/HCPCS: 36415; 80053; 80061; 82306; 82607; 82746; 83036; 84443; 85027; 86704; 86706; 86780; 86803; 87340; 87389

== ENCOUNTER → 2023-10-04 10:44 | Outpatient (REF) | payer MEDICAID, SELFPAY | LOC: HO.SL 10:44 | PROVIDERS: PCP Nurse Practitioner Family; Visit Provider Internal Medicine | DX: G47.33 Obstructive sleep apnea (adult) (pediatric) (principal) | CPT/HCPCS: 95806 ==

== ENCOUNTER → 2023-10-04 10:54 | Outpatient (BNV) | payer MEDICAID, SELFPAY | PROVIDERS: PCP Nurse Practitioner Family; Visit Provider Internal Medicine | DX: G47.33 Obstructive sleep apnea (adult) (pediatric) (principal) | CPT/HCPCS: 95806 ==

== ENCOUNTER 2023-10-09 12:47 | Outpatient (AMB) | payer MEDICAID, SELFPAY ==
[2023-10-09 12:52] VITALS: BP 140/60; PULSE 95; BMI 62.3
--- NOTE | 2023-10-09 12:52 | A.OFFVIS_ITS ---
Intake Vital Signs 10/09/23 12:52 10/09/23 13:11 Height 5 ft 9 in Weight 421 lb 15.436 oz BMI 62.3 BP 140/60 H 118/64 Blood Pressure Location Lt radial Lt brachial Position Sitting Sitting Pulse 95 Pulse Source Pulse Oximeter Intake Visit Reasons: 6wk fu after echo/holter/sleep study Intake Note: 6 wk f/up after echo/holter/sleep study/ pt its feeling fine. 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 Since his last appt he has lost 6 lbs and is going to be working with his PCP and transitional care liaison on weight loss in the coming months. BP upon arrival was elevated - improved on recheck by me. He denies chest pains, palpitations, lightheadedness, or shortness of breath. He states since he started the metoprolol succinate back in Jun 2023 he has had close to no episodes of palpitations. He had his holter, echo, and sleep study performed. [facility] Medical History Essential hypertension Surgical History No pertinent past surgical history Family History Mother No problems noted. Father No problems noted. Social History Alcohol intake: never Review of Systems Const Denies chills, Denies fatigue, Denies fever(s), Denies frequent falls, Denies weakness, Denies weight gain and Denies weight loss ENT Denies dizziness Card Denies chest pain, Denies leg edema, Denies lightheadedness, Denies palpitations , Denies dyspnea and Denies dyspnea on exertion Resp Denies cough, Denies dyspnea and Denies dyspnea on exertion GI Denies hematochezia Musc Denies abnormal gait, Denies muscle weakness, Denies numbness, Denies radiating pain into limb and Denies tingling Neuro Denies abnormal gait, Denies dizziness, Denies frequent falls, Denies numbness, Denies tingling and Denies weakness Endo Denies fatigue and Denies palpitations Physical Exam Vital Signs: Last Vital Signs Pulse 95 10/09/23 12:52 BP 118/64 10/09/23 13:11 BMI result Body Mass Index 62.3 Const General: healthy appearing and no acute distress Orientation/consciousness: patient oriented x3 HEENT Head: Yes normal to inspection Eyes General: appearance normal, both eyes and all related structures Neck Neck: Yes normal visual inspection Chest Chest palpation & inspection: normal inspection of the chest Resp Effort & Inspection: normal respiratory effort Auscultation: clear to auscultation bilaterally Cardio Jugular venous distension: no JVD Palpation: normal PMI Rate: regular rate Rhythm: regular rhythm Heart sounds: S1 normal heart sound present, S2 normal heart sound present, no click, no gallops, no murmurs and no rubs GI Inspection: Yes normal to inspection Palpation (GI): Soft to palpation Skin General skin exam: no rashes or lesions noted Neuro General: patient oriented x3 Extrem General: Yes normal to inspection Psych Appearance: grossly normal Results Reviewed Results Reviewed: Echocardiogram showed normal LV ejection fraction of 55-60%. Normal cardiac coppler. Uppler limits of normal ascending aortic size. Holter showed average rate of 83 bpm. Range of 68-134 bpm. Rare ectopy. One ventricular ectopy. Sleep study: no available yet for review. Assessment & Plan Assessment & Plan (1) Palpitations: Code(s): R00.2 - Palpitations (2) Essential hypertension: Code(s): I10 - Essential (primary) hypertension (3) Obesity: Code(s): E66.9 - Obesity, unspecified Qualifiers: Obesity classification: adult class 3 (BMI >= 40) (4) Hypersomnia: Code(s): G47.10 - Hypersomnia, unspecified Plan No episodes of palpitations since started metoprolol succinate ER 50mg - continue. Report new or worsening episodes. Blood pressure on recheck within normal limits. Continue medications from PCP and check periodically at home. Continue weight loss, heart healthy diet, and reduction of salt. Discussed ways to increase physical activity. Discussed in detail the importance of blood pressure control and ways to reduce blood pressures. Patient agreed to plan and had no questions. Will keep eye on sleep study results and inform pt. Coding Level of Care Code Est Pt Level 3 (32049) Diagnoses Palpitations R00.2 Essential hypertension I10 Obesity E66.9 Obesity classification: adult class 3 (BMI >= 40) Hypersomnia G47.10
[2023-10-09 13:11] VITALS: BP 118/64
== END 2023-10-09 13:20 | disposition home or self-care (01) ==
PROVIDERS: PCP Nurse Practitioner Family; Visit Provider Nurse Practitioner
DX: R00.2 Palpitations (principal); I10 Essential (primary) hypertension; E66.9 Obesity, unspecified; G47.10 Hypersomnia, unspecified
CPT/HCPCS: 99213

== ENCOUNTER → 2023-10-09 12:47 | Outpatient (BNVA) | payer MEDICAID, SELFPAY | PROVIDERS: PCP Nurse Practitioner Family; Visit Provider Nurse Practitioner | DX: R00.2 Palpitations (principal); I10 Essential (primary) hypertension; E66.9 Obesity, unspecified; Z68.44 Body mass index [BMI] 60.0-69.9, adult; G47.10 Hypersomnia, unspecified | CPT/HCPCS: 99212 ==

== ENCOUNTER 2023-11-15 09:48 | Outpatient (AMB) | payer MEDICAID, SELFPAY ==
[2023-11-15 09:54] VITALS: BP 122/78; PULSE 95; O2SAT 98; BMI 62.8
--- NOTE | 2023-11-15 09:54 | A.OFFVIS_ITS ---
Intake Vital Signs 11/15/23 09:54 Height 5 ft 9 in Weight 425 lb 7.874 oz BMI 62.8 BP 122/78 Blood Pressure Location Lt radial Position Sitting Pulse 95 Pulse Source Pulse Oximeter Pulse Oximetry (%) 98 Oxygen Delivery Method Room Air Intake Visit Reasons: sleep apnea Intake Note: pt is here as a new patient for follow up of sleep study. pt does snore, cardiology sent over for follow up of sleep study. 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 RECENTLY HE HAD UNCONTROLLED HYPERTENSION AND WAS REFERRED TO CARDIOLOGY SERVICE. WITH THE MEDICATIONS HIS BLOOD PRESSURE IS RELATIVELY CONTROLLED. HE HAD A SLEEP STUDY, WHICH IS POSITIVE FOR OBSTRUCTIVE SLEEP APNEA WITH TOTAL SLEEP TIME AHI 18. THIS GENTLEMAN HAS BEEN GROSSLY OBESE SINCE HIS CHILDHOOD. HE LIVES WITH HIS MOTHER, NOT WORKING, REMAINS MOSTLY SEDENTARY AT HOME AND HAS BEEN PUTTING ON WEIGHT. HE IS NOT IN ANY WEIGHT MANAGEMENT PROGRAM YET. HIS SLEEP IS DISTURBED AT NIGHT HE WAKES FREQUENTLY. AND HE DOES REMAINS SOMEWHAT TIRED DURING THE DAYTIME THOUGH HE DENIES ANY EXCESSIVE DAYTIME SLEEPINESS. HE HAS NO OTHER SIGNIFICANT MEDICAL ISSUES. [facility] REVIEWED [facility] Medical History (Updated 11/15/23 @ 11:57 by Елена Perea MD) PETER (obstructive sleep apnea) Morbid (severe) obesity due to excess calories Essential hypertension Surgical History No pertinent past surgical history Family History Mother No problems noted. Father No problems noted. Social History (Updated 11/15/23 @ 09:59 by Caridad Mccarthy Ollie) Alcohol intake: never Patient Tobacco Use Status: Never used Tobacco Review of Systems Const All systems reviewed & are unremarkable except as noted in HPI and below Eyes Reports no additional complaints ENT Reports no additional complaints Card Denies chest pain, Denies irregular heart rhythm, Denies leg edema and Denies dyspnea on exertion Resp Denies cough, Denies hemoptysis, Denies dyspnea on exertion and Denies wheezing GI Reports no additional complaints Reports no additional complaints Musc Reports no additional complaints Skin/Breast Reports system reviewed and no additional complaints, except as documented Neuro Reports no additional complaints Psych Reports no additional complaints Aller/Immun Denies wheezing Physical Exam Vital Signs: Last Vital Signs Pulse 95 11/15/23 09:54 BP 122/78 11/15/23 09:54 Pulse Ox 98 11/15/23 09:54 Oxygen Delivery Method Room Air 11/15/23 09:54 BMI result Body Mass Index 62.8 Const Other: GROSSLY OBESE WITH A ROUND FACE General: comfortable, no acute distress, alert and awake Orientation/consciousness: patient oriented x3 HEENT Head: Yes normal to inspection General nose exam: No nasal polyps present and No nasal discharge present Face and sinus: Yes sinuses nontender Mouth: oropharynx abnormals (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, MALLAMPATI CLASS 4) Throat: Yes posterior oropharynx normal Eyes General: appearance normal, both eyes and all related structures Neck Neck: Yes normal visual inspection, Yes no lymphadenopathy, Yes trachea midline, Yes no JVD and Yes other (NECK SIZE 20 IN) Thyroid: Thyroid normal Chest Chest palpation & inspection: normal inspection of the chest, normal palpation of entire chest wall and no tenderness Resp Effort & Inspection: normal respiratory effort Auscultation: clear to auscultation bilaterally, no crackles, no rhonchi and no wheezes Cardio Palpation: normal PMI Rate: regular rate Rhythm: regular rhythm Heart sounds: no gallops and no murmurs Peripheral pulses: Peripheral pulses 2+ throughout GI Palpation (GI): Soft to palpation, nontender, No hepatosplenomegaly present, no masses and Other GI palpation findings present (ABDOMEN IS GROSSLY OBESE AND PROTUBERANT) Auscultation: normal bowel sounds Back/Spine/Pelvis Thoracic/Lumbar Spine: thoracic and lumbar spine normal to inspection Skin General skin exam: no rashes or lesions noted Neuro General: patient oriented x3 and no focal motor deficits Cranial nerves: Yes CN's II-XII intact bilaterally Extrem General: Yes normal to inspection, Yes no clubbing, cyanosis or edema and Yes no calf tenderness Psych Speech and movement: Normal speech and movement present Results Reviewed Results Reviewed: HOME-BASED SLEEP STUDY RESULTS ARE REVIEWED TOTAL SLEEP TIME AHI 18.2. MOST OF THE SLEEP WAS IN LATERAL POSITIONS SNORING 28%. ALSO NOCTURNAL HYPOXEMIA WITH AVERAGE O2 SAT 93 AND LOWEST O2 SAT 74% AND O2 SAT BELOW 88% FOR 18 MINUTES THIS REPRESENTS SLEEP-RELATED HYPOVENTILATION Assessment & Plan Assessment & Plan (1) Morbid (severe) obesity due to excess calories: Comment: PATIENT IS SOMEWHAT EASY GOING, CLAIMS THAT. HE IS FEELING OKAY Code(s): E66.01 - Morbid (severe) obesity due to excess calories Plan: EDUCATED ABOUT HIS OBESITY AND RELATIONSHIP TO OBSTRUCTIVE SLEEP APNEA AND MANY OTHER HEALTH RISKS. I ADVISED HIM THAT HE NEEDS TO . GO TO WEIGHT MANAGEMENT PROGRAM HE TOLD ME THAT HE HAS APPOINTMENT WITH HIS PCP NEXT WEEK AND WILL DISCUSS ABOUT HIS WEIGHT ISSUES. (2) PETER (obstructive sleep apnea): Comment: EXPECTED HE HAS MODERATELY SEVERE OBSTRUCTIVE SLEEP APNEA WITH MILD NOCTURNAL HYPOXEMIA. Code(s): G47.33 - Obstructive sleep apnea (adult) (pediatric) Plan: PATIENT EDUCATED ABOUT SLEEP APNEA, ITS RELATIONSHIP TO HIS WEIGHT, AND NEED TO TREATED. .HE UNDERSTANDS WELL PATIENT WILL BE STARTED ON CPAP WITH AUTO PAP MODE AND PRESSURE SETTING OF 6-20 CM, AND IT WILL BE FOLLOWED CLOSELY FOR COMPLIANCE AND BENEFITS. Coding Level of Care Code New Pt Level 4 (79683) Diagnoses Morbid (severe) obesity due to excess calories E66.01 PETER (obstructive sleep apnea) G47.33
== END 2023-11-15 10:26 | disposition home or self-care (01) ==
PROVIDERS: PCP Nurse Practitioner Family; Visit Provider Internal Medicine
DX: G47.33 Obstructive sleep apnea (adult) (pediatric) (principal); E66.01 Morbid (severe) obesity due to excess calories; Z68.44 Body mass index [BMI] 60.0-69.9, adult
CPT/HCPCS: 99214

== ENCOUNTER → 2023-11-15 09:48 | Outpatient (BNVA) | payer MEDICAID, SELFPAY | PROVIDERS: PCP Nurse Practitioner Family; Visit Provider Internal Medicine | DX: G47.33 Obstructive sleep apnea (adult) (pediatric) (principal); E66.01 Morbid (severe) obesity due to excess calories | CPT/HCPCS: 99212 ==

== ENCOUNTER 2023-11-29 08:00 | Emergency (ER) | payer MEDICAID, SELFPAY ==
--- NOTE | 2023-11-29 | ECG_ITS ---
Test Reason : chest pain Blood Pressure : / mmHG Vent. Rate : 084 BPM Atrial Rate : 084 BPM P-R Int : 202 ms QRS Dur : 092 ms QT Int : 366 ms P-R-T Axes : 024 007 017 degrees QTc Int : 432 ms Normal sinus rhythm Normal ECG When compared with ECG of 30-JUN-2023 15:50, T wave inversion no longer evident in Anterior leads Referred By: Generic ED Physician Electronically Signed By:TASHA GUO MD
--- NOTE | ~2023-11-29 | XR_ITS ---
EXAMINATION: XR CHEST CLINICAL INFORMATION: Palpitations COMPARISON: None available. TECHNIQUE: 2 views of the chest were obtained. FINDINGS: No significant abnormality is noted involving the heart, lungs, mediastinum, bony thorax or soft tissues. XR/XR chest 2V IMPRESSION: Unremarkable examination.
[2023-11-29 08:13] VITALS: BP 155/98; PULSE 90; RESP 18; TEMP 36.8; O2SAT 99; BMI 65.2
--- NOTE | 2023-11-29 08:20 | PC.NURSE ---
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
--- NOTE | 2023-11-29 08:40 | ED_ITS ---
HPI - Arrhythmia/Palpitations General Chief Complaint: Arrhythmia/Palpitations Stated Complaint: Heart racing, tingling left arm Time Seen by Provider: 11/29/23 08:30 Source: patient, RN notes reviewed and old records reviewed Mode of arrival: ambulatory Limitations: no limitations History of Present Illness HPI narrative: 33 year old male with pmhx significant for PETER not on CPAP, essential hypertension, palpitations, and morbid obesity presents to the ED today for evaluation of palpitations beginning acutely at 4:00 a.m. this morning. States he woke up abruptly at 4:00 a.m. from a nightmare. States he was scared, began to feel palpitations, and could not fall back asleep. At around 6:00 a.m. he began to feel a tingling down his left upper extremity which has since resolved. Denies illicit substance use. Denies fever, chills, chest pain, shortness of breath, cough, hemoptysis, lower extremity pain/swelling. Denies recent travel or long car rides. Denies recent illness. Denies sick contacts. Endorses history of palpitations when I have spikes and my blood pressure . He was unable to check his BP at home this morning as his machine needs new batteries. Reports taking metoprolol and losartan this morning. States that he has followed up with Cardiology over the last few months, last visit 1 month ago. He has had negative workup. Was recently diagnosed with sleep apnea 1 week ago and is waiting on CPAP machine. Related Data Home Medications Medication Instructions Recorded Confirmed losartan 100 mg tablet 100 mg PO DAILY 02/01/21 08/16/23 amlodipine 5 mg tablet 5 mg PO QAM 08/16/23 08/16/23 hydrochlorothiazide 12.5 mg capsule 12.5 mg PO DAILY 08/16/23 08/16/23 Previous Rx's Medication Instructions Recorded metoprolol succinate 50 mg 50 mg PO DAILY #30 tabs 06/30/23 tablet,extended release 24 hr Allergies Allergy/AdvReac Type Severity Reaction Status Date / Time No Known Allergies Allergy Verified 11/29/23 08:13 Review of Systems 2 Review of Systems: Constitutional: No fever, chills, fatigue, night sweats, weight changes ENT/Mouth: No ear pain, hearing loss, nasal congestion, sinus pain, rhinorrhea, sore throat Eyes: No eye pain, swelling, redness, vision changes, discharge Cardio: No chest pain, CHRISTINA, orthopnea, peripheral edema, + palpitations Pulm: No SOB, cough, sputum, wheezing, dyspnea, hemoptysis GI: No nausea, vomiting, hematemesis, abdominal pain, diarrhea, constipation, hematochezia, melena : No irregular bleeding, dysuria, frequency, urgency, hesitancy, hematuria, flank pain, urinary flow changes, urinary incontinence or retention MSK: No back pain, neck pain, joint pain, myalgias Skin: No lesions, rashes Neuro: No weakness, numbness, paresthesias, LOC, dizziness, headache Psych: No anxiety/panic, depression, SI/HI, AH/VH All other systems reviewed and are negative. [facility] Past Medical History Attestation statement: The following information was validated with the patient. Source: old records reviewed and nursing notes reviewed Medical History PETER (obstructive sleep apnea) Morbid (severe) obesity due to excess calories Essential hypertension Surgical History No pertinent past surgical history Family History Family History Mother No problems noted. Father No problems noted. Social History Social History Alcohol intake: never Patient Tobacco Use Status: Never used Tobacco Smoked in Last 30 Days: No Use of substances other than those prescribed or required for medical reasons: No Advance Directives: No Physical Exam 2 Vital Signs: Vital Signs: Last Vital Signs Temp 98.3 F 11/29/23 12:22 Pulse 85 11/29/23 12:22 Resp 20 11/29/23 12:22 BP 148/78 H 11/29/23 12:22 Pulse Ox 97 11/29/23 12:22 O2 Del Method Room Air 11/29/23 12:22 BMI result Body Mass Index 65.2 Patient hypertensive, vitals otherwise WNL. Const: General: cooperative, comfortable and no acute distress Nutritional Appearance: obese Orientation/consciousness: patient oriented x3 L imitations: no limitations HEENT: Head: Yes normal to inspection, Yes normocephalic and Yes atraumatic Eyes: General: appearance normal, both eyes and all related structures Neck: Neck: Yes normal visual inspection and Yes no lymphadenopathy Chest: Chest palpation & inspection: normal inspection of the chest and normal palpation of entire chest wall Resp: Effort & Inspection: normal respiratory effort and able to speak in complete sentences Auscultation: clear to auscultation bilaterally Cardio: Rate: regular rate Rhythm: regular rhythm GI: Inspection: Yes normal to inspection Palpation (GI): Soft to palpation and nontender Skin: Other: + acanthosis nigricans noted to face, up per extremities General skin exam: no rashes or lesions noted Neuro: General: patient oriented x3 Extrem: General: Yes normal to inspection Course Course Course Narrative: 928-- on review of patient's chart, he has a history of palpitations and has been evaluated by Cardiology. He has had a normal Holter monitor and echo test. He currently takes metoprolol and losartan for high blood pressure and reports taking these this morning. 1137-- CBC without leukocytosis or anemia. H&H stable. No acute electrolyte abnormality requiring intervention. Magnesium WNL. Glucose slightly elevated to 134. Initial troponin undetectable. Awaiting repeat. Lipase WNL. Chest x- ray unremarkable. No signs of pneumonia or effusion. Cardiac silhouette WNL. EKG showing normal sinus rhythm with a rate of 84 beats per minute, QT 366, QTC 432, no acute ischemic changes or ST elevations. 1300-- Second troponin flat. Discussed all workup results with patient. There is no clear etiology for patient's symptoms. I do not have concern for arrhythmia or ACS at this time.CXR is negative for pneumonia. As he has had palpitations ongoing for years and currently follows with [facility], I do not have concern for acute process at this time given unremarkable workup. Advised patient to follow-up with his PCP. He tells me he has an appointment with them next week. Patient has remained stable throughout ED visit today. Discussed worrisome signs and symptoms and when to return to the ED. All questions answered at this time. Patient is agreeable with disposition and stable for discharge. Medical Decision Making Medical Decision Making [facility] Narrative: 33 year old male with pmhx significant for PETER not on CPAP, essential hypertension, palpitations, and morbid obesity presents to the ED today for evaluation of palpitations beginning acutely at 4:00 a.m. this morning. Patient is slightly hypertensive to 155/98- will repeat. vitals otherwise WNL. Not tachycardic or hypoxic. On exam, patient is morbidly obese. Nontoxic-appearing and in no acute distress. Lungs are CTA bilaterally. RRR. No calf tenderness bilaterally. Differential diagnosis includes sleep apnea, anxiety, arrhythmia, ACS, pneumonia, pleuritis. PERC score 0. Unlikely pulmonary embolism/DVT. Lower suspicion for pericarditis, myocarditis. Plan for labs, EKG, treatment, chest x-ray and re-evaluation. Differential Diagnosis Differential Diagnoses: The differential diagnosis associated with the presentation includes as above. Admission/Observation Not indicated Lab Data MDM Lab Attestation statement: I reviewed the patient's lab results. As above 11/29/23 08:55 11/29/23 08:55 Labs: Lab Results 11/29/23 11/29/23 Range/Units 08:55 12:26 WBC 8.0 (4.8-10.8) X10*3/uL RBC 4.95 (4.60-5.80) X10*6/uL Hgb 14.8 (14.0-18.0) g/dl Hct 42.9 (42.0-52.0) % MCV 86.7 (80.0-98.0) fL MCH 29.9 (27.0-33.0) pg MCHC 34.5 (31.0-36.0) g/dl RDW 12.6 (11.0-16.0) % Plt Count 306 (160-400) X10*3/uL MPV 10.0 (9.4-12.4) fL Immature Gran % (Auto) 0.4 (0.0-0.4) % Neut % (Auto) 61.3 (45-73) % Lymph % (Auto) 28.3 (20-40) % Gentry % (Auto) 8.2 (2-11) % Eos % (Auto) 1.6 (0-4) % Baso % (Auto) 0.2 (0-2) % Lymph # (Auto) 2.3 (1.2-4.9) X10*3/uL Gentry # (Auto) 0.7 (0.1-1.2) X10*3/uL Eos # (Auto) 0.1 (0.0-0.4) X10*3/uL Baso # (Auto) 0.0 (0.0-0.2) X10*3/uL Abs Immat Gran (auto) 0.03 (0.00-0.03) X10*3/uL Absolute Neuts (auto) 4.9 (2.0-8.3) x10*3/uL Absolute Nucleated RBC 0.000 (0.0-0.012) X10*3/uL Nucleated RBC % (auto) 0.0 (0.0-0.2) /100WBC Sodium 138 (135-145) mmol/L Potassium 3.6 (3.3-5.1) mmol/L Chloride 104 (96-108) mmol/L Carbon Dioxide 26 (22-29) mmol/L Anion Gap 12 (12-20) BUN 10 (9-16) mg/dL Creatinine 0.84 (0.5-1.4) mg/dL Estim Creat Clear Calc 208.2 Estimated GFR > 60 Random Glucose 134 H (60-115) mg/dL Calcium 9.3 (8.4-10.2) mg/dL Magnesium 1.9 (1.6-2.6) mg/dL Troponin I High Sens < 2.7 < 2.7 (<3.5-35.0) ng/L Lipase 15 (8-78) U/L Independent Interpretation I performed an independent interpretation of an: EKG and Plain X-Ray Interpretation: EKG showing normal sinus rhythm at a rate of 84 beats per minute, QT 366, QTC 432, no acute ischemic changes or ST elevations. I have personally reviewed chest x-ray and agree with radiologist's interpretation. Radiology Impression Discussion of test interpretation with radiology: I have reviewed the radiologist's reading. Radiologist Impression: XR chest 2V IMPRESSION: Unremarkable examination. External Record Review External record reviewed: Inpatient record, Office record, Outpatient record, Prior outpatient labs, Prior outpatient radiology, Primary care record and Outside ED record Prescription Management I considered prescription management with: Pain Medication Chronic Conditions Patient?s care impacted by: Hypertension and Other (PETER) Social Determinants Patient?s care significantly limited by Social Determinants of Health including: Other Social Determinant of Health Critical Care Time Critical Care Time Critical Care Time: Yes Total Critical Care Time: 35 Attestation: Critical care time in the amount of 35 minutes has been provided to the patient in terms of direct patient care, frequent reevaluation, review and interpretation of medical data and results, and management of potentially life- threatening conditions. This is all outside of any medical procedures. Discharge Plan Discharge Clinical Impression: Palpitations Patient Disposition: Home, Self-Care Instructions: Heart Palpitations (ED) Additional Instructions: Your labs are reassuring. Your EKG is normal. Your chest x-ray is normal. Please follow-up with your [facility] or PCP this week. Continue all home medications as prescribed. Return to the ED for new or worsening symptoms. In the case of an emergency call 911. Prescriptions: No Action metoprolol succinate 50 mg tablet extended release 24 hr 50 mg PO DAILY Qty: 30 0RF losartan 100 mg tablet 100 mg PO DAILY hydrochlorothiazide 12.5 mg capsule 12.5 mg PO DAILY amlodipine 5 mg tablet 5 mg PO QAM Referrals: [facility] [Provider Group] Stand Alone Forms: Work/School Release Interventions: ED Discharge Assessment Last Done: 11/29/23 13:29 Discharge Date/Time: 11/29/23 13:30
[2023-11-29 09:02] LABS: MANUAL DIFF FLAG NO
[2023-11-29 09:03] LABS: Basophils Percent Auto 0.2 % (0-2); Eosinophils Absolute Auto 0.1 X10*3/uL (0.0-0.4); Eosinophils Percent Auto 1.6 % (0-4); Hematocrit 42.9 % (42.0-52.0); Hemoglobin 14.8 g/dl (14.0-18.0); Imm Gran Abs Auto 0.03 X10*3/uL (0.00-0.03); Imm Gran Pct Auto 0.4 % (0.0-0.4); Lymphocytes Absolute Auto 2.3 X10*3/uL (1.2-4.9); Lymphocytes Percent Auto 28.3 % (20-40); Mean Corpuscular HGB Conc 34.5 g/dl (31.0-36.0); Mean Corpuscular Hemoglobin 29.9 pg (27.0-33.0); Mean Corpuscular Volume 86.7 fL (80.0-98.0); Monocytes Absolute Auto 0.7 X10*3/uL (0.1-1.2); Monocytes Percent Auto 8.2 % (2-11); Neutrophils Absolute Auto 4.9 x10*3/uL (2.0-8.3); Neutrophils Percent Auto 61.3 % (45-73); Platelet Count 306 X10*3/uL (160-400); Red Blood Count 4.95 X10*6/uL (4.60-5.80); Red Cell Distribution Width 12.6 % (11.0-16.0)
[2023-11-29 09:17] LABS: Anion Gap 12 (12-20); Blood Urea Nitrogen 10 mg/dL (9-16); Calcium 9.3 mg/dL (8.4-10.2); Carbon Dioxide 26 mmol/L (22-29); Chloride 104 mmol/L (96-108); Creatinine Clr Calc Pharmacy 208.2; Estimated Glomerular Filt Rate > 60; Glucose Random 134 mg/dL (60-115); Lipase 15 U/L (8-78); Magnesium 1.9 mg/dL (1.6-2.6); Potassium 3.6 mmol/L (3.3-5.1); Sodium 138 mmol/L (135-145)
[2023-11-29 09:27] LABS: Troponin-I High Sensitivity < 2.7 ng/L (<3.5-35.0)
[2023-11-29 10:12] VITALS: BP 143/96; PULSE 86; RESP 16; TEMP 36.4; O2SAT 97
[2023-11-29 12:22] VITALS: BP 148/78; PULSE 85; RESP 20; TEMP 36.8; O2SAT 97
[2023-11-29 12:53] LABS: Troponin-I High Sensitivity < 2.7 ng/L (<3.5-35.0)
== END 2023-11-29 13:30 | disposition home or self-care (01) ==
PROVIDERS: Physician Assistant Medical; Emergency Provider Emergency Medicine; PCP Student in an Organized Health Care Education/Training Program
DX: I49.9 Cardiac arrhythmia, unspecified (principal); R00.2 Palpitations; R07.89 Other chest pain; Z79.899 Other long term (current) drug therapy
CPT/HCPCS: 36415; 71046; 80048; 83690; 83735; 84484; 85025; 93005; 99283; 99285

== ENCOUNTER → 2023-11-29 08:05 | Outpatient (BNV) | payer MEDICAID, SELFPAY | PROVIDERS: Emergency Provider Emergency Medicine; PCP Student in an Organized Health Care Education/Training Program; Visit Provider Internal Medicine Cardiovascular Disease | DX: R07.9 Chest pain, unspecified (principal) | CPT/HCPCS: 93010 ==

== ENCOUNTER 2024-03-24 09:43 | Outpatient (REF) | payer MEDICAID, SELFPAY ==
[2024-03-24 12:18] LABS: Alanine Aminotransferase 57 U/L (0-40); Alkaline Phosphatase 67 U/L (39-117); Anion Gap 11 (12-20); Aspartate Amino Transferase 24 U/L (5-37); Bilirubin Total 0.7 mg/dL (0.0-1.0); Blood Urea Nitrogen 14 mg/dL (9-16); Calcium 9.6 mg/dL (8.4-10.2); Carbon Dioxide 26 mmol/L (22-29); Chloride 105 mmol/L (96-108); Estimated Glomerular Filt Rate > 60; Glucose Random 105 mg/dL (60-115); Potassium 4.1 mmol/L (3.3-5.1); Sodium 138 mmol/L (135-145); Total Protein 7.6 g/dL (6.5-8.0)
== END 2024-03-24 09:44 | disposition home or self-care (01) ==
LOC: HO.HHCL 09:43
PROVIDERS: Visit Provider Student in an Organized Health Care Education/Training Program
DX: E66.01 Morbid (severe) obesity due to excess calories (principal)
CPT/HCPCS: 36415; 80053

== ENCOUNTER 2024-03-25 12:00 | Outpatient (AMB) | payer MEDICAID, SELFPAY ==
--- NOTE | 2024-03-25 12:23 | MHC.OFFVIS ---
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 He was seen regarding palpitations. Morbidly obese at more than 400 lb. No previous cardiac history. He underwent workup including echocardiogram, Holter in sleep study. Sleep study is abnormal and he has seen Pulmonary and started CPAP. After that, he states he is feeling much better. Palpitations significantly improved. [facility] Medical History PETER (obstructive sleep apnea) Morbid (severe) obesity due to excess calories Essential hypertension Surgical History No pertinent past surgical history Family History Mother No problems noted. Father No problems noted. Social History Alcohol intake: never Patient Tobacco Use Status: Never used Tobacco Review of Systems Const Denies chills, Denies fatigue, Denies fever(s), Denies weight gain and Denies weight loss Card Denies chest pain, Denies leg edema, Denies lightheadedness, Denies palpitations, Denies dyspnea on exertion and Denies orthopnea Resp Denies cough and Denies dyspnea on exertion GI Denies hematochezia and Denies change in stool character Musc Denies muscle weakness and Denies radiating pain into limb Endo Denies fatigue and Denies palpitations Physical Exam Vital Signs: Last Vital Signs Pulse 89 03/25/24 12:24 BP 144/76 H 03/25/24 12:24 BMI result Body Mass Index 62.3 Const General: comfortable and no acute distress Orientation/consciousness: patient oriented x3 HEENT Other: Unremarkable Head: Yes normal to inspection Neck Neck: Yes normal visual inspection Chest Chest palpation & inspection: normal inspection of the chest Resp Auscultation: clear to auscultation bilaterally Cardio Palpation: normal PMI Heart sounds: S1 normal heart sound present, S2 normal heart sound present, no gallops, no murmurs and no rubs GI Palpation (GI): Soft to palpation Back/Spine/Pelvis Other: unremarkable Skin General skin exam: no rashes or lesions noted Neuro General: patient oriented x3 Extrem General: Yes normal to inspection Psych Mental Status: mental status grossly normal Assessment & Plan Assessment & Plan (1) Palpitations: Code(s): R00.2 - Palpitations Category: Medical (2) Obesity: Code(s): E66.9 - Obesity, unspecified Category: Medical Qualifiers: Obesity classification: adult class 3 (BMI >= 40) (3) Essential hypertension: Code(s): I10 - Essential (primary) hypertension Category: Medical Plan Baseline EKG mild sinus tachycardia at 105/min; no significant ST-T changes; normal OH and corrected QT. previous EKG from April also similar. Echocardiogram with LVEF of 55-60%, mildly reduced peak global longitudinal strain and otherwise unremarkable. Holter monitor shows underlying sinus rhythm with an average rate of 83/Min. Otherwise unremarkable. Sleep study shows moderately severe obstructive sleep apnea. Overall, morbid obesity, hypertension, obstructive sleep apnea. Main recommendation is weight loss. With meaningful weight loss, he should see some improvement in blood pressure as well as overall improvement in cardiometabolic profile. No medication changes for now but once the weight goes down, blood pressure should improve and he may be able to cut back on some of the medications. Otherwise, continue CPAP mask. He will contact us with ongoing concerns. Coding Level of Care Code Est Pt Level 3 (71393) Diagnoses Palpitations R00.2 Obesity E66.9 Obesity classification: adult class 3 (BMI >= 40) Essential hypertension I10
[2024-03-25 12:24] VITALS: BP 144/76; PULSE 89; BMI 62.3
== END 2024-03-25 12:38 | disposition home or self-care (01) ==
PROVIDERS: PCP Nurse Practitioner Family; Referring Provider Nurse Practitioner Family; Visit Provider Internal Medicine
DX: R00.2 Palpitations (principal); E66.9 Obesity, unspecified; I10 Essential (primary) hypertension
CPT/HCPCS: 99213

== ENCOUNTER → 2024-03-25 12:00 | Outpatient (BNVA) | payer MEDICAID, SELFPAY | PROVIDERS: PCP Nurse Practitioner Family; Visit Provider Internal Medicine | DX: R00.2 Palpitations (principal); I10 Essential (primary) hypertension; E66.9 Obesity, unspecified | CPT/HCPCS: 99212 ==

== ENCOUNTER 2024-05-14 10:38 | Outpatient (AMB) | payer MEDICAID, SELFPAY ==
--- NOTE | 2024-05-14 10:48 | MHC.OFFVIS ---
Vital Signs 05/14/24 10:49 Height 5 ft 8 in Weight 406 lb 12.046 oz BMI 61.8 BP 130/84 Blood Pressure Location Lt brachial Position Sitting Pulse 88 Pulse Source Pulse Oximeter Pulse Oximetry (%) 98 Oxygen Delivery Method Room Air Intake Visit Reasons: Sleep apnea Intake Note: pt is here for follow up and states he is using the cpap every night but is noticing he has a fast heart rate in am when waking up for the past week and half. 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 HE IS VERY PLEASANT, CLAIMS THAT HAS BEEN USING CPAP EVERY NIGHT. IN FACT HE JUST COULD NOT SLEEP WITHOUT THE CPAP. HE SLEEPS UP TO 10 HOURS A DAY . WAKES UP REFRESHED AND ENERGETIC . HE WATCHES HIS DIET, HE HAS CUT THE PORTIONS OF HIS DIET AND IS STARTING TO WALK DAILY. HAS BEEN STARTED ON WEGOVY THERAPY AND THAT IS HELPING. [facility] Medical History PETER (obstructive sleep apnea) Morbid (severe) obesity due to excess calories Essential hypertension Surgical History No pertinent past surgical history Family History Mother No problems noted. Father No problems noted. Social History Alcohol intake: never Patient Tobacco Use Status: Never used Tobacco Review of Systems Const All systems reviewed & are unremarkable except as noted in HPI and below Eyes Reports no additional complaints ENT Reports no additional complaints Card Denies chest pain, Denies irregular heart rhythm, Denies leg edema and Denies dyspnea on exertion Resp Denies cough, Denies hemoptysis, Denies dyspnea on exertion and Denies wheezing GI Reports no additional complaints Reports no additional complaints Musc Reports no additional complaints Skin/Breast Reports system reviewed and no additional complaints, except as documented Neuro Reports no additional complaints Psych Reports no additional complaints Aller/Immun Denies wheezing Physical Exam Vital Signs: Last Vital Signs Pulse 88 05/14/24 10:49 BP 130/84 05/14/24 10:49 Pulse Ox 98 05/14/24 10:49 Oxygen Delivery Method Room Air 05/14/24 10:49 BMI result Body Mass Index 61.8 Const Other: GROSSLY OBESE WITH A ROUND FACE General: comfortable, no acute distress, alert and awake Orientation/consciousness: patient oriented x3 HEENT Head: Yes normal to inspection General nose exam: No nasal polyps present and No nasal discharge present Face and sinus: Yes sinuses nontender Mouth: oropharynx abnormals (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, MALLAMPATI CLASS 4) Throat: Yes posterior oropharynx normal Eyes General: appearance normal, both eyes and all related structures Neck Neck: Yes normal visual inspection, Yes no lymphadenopathy, Yes trachea midline, Yes no JVD and Yes other (NECK SIZE 20 IN) Thyroid: Thyroid normal Chest Chest palpation & inspection: normal inspection of the chest, normal palpation of entire chest wall and no tenderness Resp Effort & Inspection: normal respiratory effort Auscultation: clear to auscultation bilaterally, no crackles, no rhonchi and no wheezes Cardio Palpation: normal PMI Rate: regular rate Rhythm: regular rhythm Heart sounds: no gallops and no murmurs Peripheral pulses: Peripheral pulses 2+ throughout GI Palpation (GI): Soft to palpation, nontender, No hepatosplenomegaly present, no masses and Other GI palpation findings present (ABDOMEN IS GROSSLY OBESE AND PROTUBERANT) Auscultation: normal bowel sounds Back/Spine/Pelvis Thoracic/Lumbar Spine: thoracic and lumbar spine normal to inspection Skin General skin exam: no rashes or lesions noted Neuro General: patient oriented x3 and no focal motor deficits Cranial nerves: Yes CN's II-XII intact bilaterally Extrem General: Yes normal to inspection, Yes no clubbing, cyanosis or edema and Yes no calf tenderness Psych Speech and movement: Normal speech and movement present Results Reviewed Results Reviewed: COMPLIANCE REPORT FOR THE LAST 30 NIGHTS IS REVIEWED. HE HAS USED 30/30 NIGHTS, 100% OF THE TIME. AVERAGE USE IT PER NIGHT IS 10 HOURS 15 MINUTES, THIS INCLUDES SOME SLEEP DURING TH.E DAYTIME WELL THERE IS SOME AIR LEAK BUT RESIDUAL AHI ONLY 0.5 Assessment & Plan Assessment & Plan (1) Morbid (severe) obesity due to excess calories: Comment: PATIENT IS DEFINITELY MORE SERIOUS ABOUT LOSING WEIGHT. HE HAS SHOWN GOOD PROGRESS IN THE LAST FEW MONTHS. HE IS WELL MOTIVATED TO CONTINUE WATCHING HIS DIET AND CONTINUE ON WAGOVY THERAPY. Code(s): E66.01 - Morbid (severe) obesity due to excess calories Category: Medical Plan: COMMENDED FOR LOSING WEIGHT. ENCOURAGED TO CONTINUE ON THE PRESENT THERAPY AND START WALKING MORE EVERY DAY. (2) PETER (obstructive sleep apnea): Comment: EXPECTED HE HAS MODERATELY SEVERE OBSTRUCTIVE SLEEP APNEA WITH MILD NOCTURNAL HYPOXEMIA. IT IS WELL CONTROLLED WITH THE USE OF CPAP. COMPLIANCE REPORT IS EX.CELLENT Code(s): G47.33 - Obstructive sleep apnea (adult) (pediatric) Category: Medical Plan: COMMENDED FOR GOOD COMPLIANCE. ADVISED TO CONTINUE USING THE CPAP EVERY NIGHT. WILL RECHECK IN 6 MONTHS Coding Level of Care Code Est Pt Level 3 (56598) Diagnoses Morbid (severe) obesity due to excess calories E66.01 PETER (obstructive sleep apnea) G47.33
[2024-05-14 10:49] VITALS: BP 130/84; PULSE 88; O2SAT 98; BMI 61.8
== END 2024-05-14 11:15 | disposition home or self-care (01) ==
PROVIDERS: PCP Nurse Practitioner Family; Visit Provider Internal Medicine
DX: E66.01 Morbid (severe) obesity due to excess calories (principal); G47.33 Obstructive sleep apnea (adult) (pediatric)
CPT/HCPCS: 99213

== ENCOUNTER → 2024-05-14 10:38 | Outpatient (BNVA) | payer MEDICAID, SELFPAY | PROVIDERS: PCP Nurse Practitioner Family; Visit Provider Internal Medicine | DX: G47.33 Obstructive sleep apnea (adult) (pediatric) (principal); E66.01 Morbid (severe) obesity due to excess calories; Z68.44 Body mass index [BMI] 60.0-69.9, adult; Z99.89 Dependence on other enabling machines and devices | CPT/HCPCS: 99212 ==

== ENCOUNTER 2024-11-13 10:42 | Outpatient (AMB) | payer MEDICAID, SELFPAY ==
[2024-11-13 11:17] VITALS: BP 130/90; PULSE 91; O2SAT 98; BMI 57.5
--- NOTE | 2024-11-13 11:17 | A.OFFVIS_ITS ---
Vital Signs 11/13/24 11:17 Height 5 ft 8 in Weight 378 lb 1.484 oz BMI 57.5 BP 130/90 H Blood Pressure Location Lt brachial Position Sitting Pulse 91 Pulse Source Pulse Oximeter Pulse Oximetry (%) 98 Oxygen Delivery Method Room Air Intake Visit Reasons: Sleep apnea Intake Note: pt is here for follow up and states he is [employer] Required: No Allergies No Known Allergies Allergy (Verified 11/13/24 11:23) Medication List - Last Reconciled 11/13/24 by Елена Perea MD amlodipine 5 mg PO QAM cholecalciferol (vitamin D3) 25 mcg PO DAILY losartan-hydrochlorothiazide 100-12.5 mg 1 tab PO DAILY metoprolol succinate ER 50 mg PO DAILY tirzepatide (weight loss) (Zepbound) 2.5 mg subcut QWEEK Do you need a note to return to daycare/school/sports/work: No HPI HPI Sleep apnea: Details: THIS 34 YEARS OLD GENTLEMAN WITH SUPER MORBID OBESITY, AND A CASE OF SEVERE OBSTRUCTIVE SLEEP APNEA IS HERE FOR 6 MONTHS FOLLOW-UP. HE HAS BEEN USING HIS CPAP VERY REGULARLY AND SLEEPING ALMOST 8 TO 8-1/2 HOURS EVERY NIGHT. HE MAY NEED TO WAKE UP ONLY ONCE DURING THE NIGHT. DURING THE DAYTIME HE DOES GO OUT TO AND WALK A FEW MILES EVERY DAY. CURRENTLY HE IS OUT OF WORK. RECENTLY HAS BEEN STARTED ON ZEPBOUND ( [place] ) INJECTIONS AND HAS LOST 28 LB SINCE HIS LAST VISIT. HE IS VERY HAPPY ABOUT THIS. [facility]LY [facility] Medical History PETER (obstructive sleep apnea) Morbid (severe) obesity due to excess calories Essential hypertension Surgical History No pertinent past surgical history Family History Mother No problems noted. Father No problems noted. Social History Alcohol intake: never Patient Tobacco Use Status: Never used Tobacco Review of Systems Const All systems reviewed & are unremarkable except as noted in HPI and below Eyes Reports no additional complaints ENT Reports no additional complaints Card Denies chest pain, Denies irregular heart rhythm, Denies leg edema and Denies dyspnea on exertion Resp Denies cough, Denies hemoptysis, Denies dyspnea on exertion and Denies wheezing GI Reports no additional complaints Reports no additional complaints Musc Reports no additional complaints Skin/Breast Reports system reviewed and no additional complaints, except as documented Neuro Reports no additional complaints Psych Reports no additional complaints Aller/Immun Denies wheezing Physical Exam Vital Signs: Last Vital Signs Pulse 91 11/13/24 11:17 BP 130/90 H 11/13/24 11:17 Pulse Ox 98 11/13/24 11:17 Oxygen Delivery Method Room Air 11/13/24 11:17 BMI result Body Mass Index 57.5 Const Other: GROSSLY OBESE WITH A ROUND FACE General: comfortable, no acute distress, alert and awake Orientation/consciousness: patient oriented x3 HEENT Head: Yes normal to inspection General nose exam: No nasal polyps present and No nasal discharge present Face and sinus: Yes sinuses nontender Mouth: oropharynx abnormals (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, MALLAMPATI CLASS 4) Throat: Yes posterior oropharynx normal Eyes General: appearance normal, both eyes and all related structures Neck Neck: Yes normal visual inspection, Yes no lymphadenopathy, Yes trachea midline, Yes no JVD and Yes other (NECK SIZE 20 IN) Thyroid: Thyroid normal Chest Chest palpation & inspection: normal inspection of the chest, normal palpation of entire chest wall and no tenderness Resp Effort & Inspection: normal respiratory effort Auscultation: clear to auscultation bilaterally, no crackles, no rhonchi and no wheezes Cardio Palpation: normal PMI Rate: regular rate Rhythm: regular rhythm Heart sounds: no gallops and no murmurs Peripheral pulses: Peripheral pulses 2+ throughout GI Palpation (GI): Soft to palpation, nontender, No hepatosplenomegaly present, no masses and Other GI palpation findings present (ABDOMEN IS GROSSLY OBESE AND PROTUBERANT) Auscultation: normal bowel sounds Back/Spine/Pelvis Thoracic/Lumbar Spine: thoracic and lumbar spine normal to inspection Skin General skin exam: no rashes or lesions noted Neuro General: patient oriented x3 and no focal motor deficits Cranial nerves: Yes CN's II-XII intact bilaterally Extrem General: Yes normal to inspection, Yes no clubbing, cyanosis or edema and Yes no calf tenderness Psych Speech and movement: Normal speech and movement present Results Reviewed Results Reviewed: COMPLIANCE REPORT REVIEWED AND HIS USAGE IS 30/30 NIGHTS,. 100% AVERAGE USE IT PER NIGHT 8 HOURS 48 MINUTES. PRESSURE USED MOSTLY 11-12 CM. RESIDUAL AHI ONLY 0.3 Assessment & Plan Assessment & Plan (1) Morbid (severe) obesity due to excess calories: Comment: PATIENT IS DEFINITELY MORE SERIOUS ABOUT LOSING WEIGHT. HE IS CURRENTLY ON ZEPBOUND INJECTIONS AND IS LOSING WEIGHT, ABOUT WHICH HE IS QUITE HAPPY AND EXCITED. Code(s): E66.01 - Morbid (severe) obesity due to excess calories Category: Medical Plan: ENCOURAGED TO WALK, 2-3 MILES EVERY DAY WATCH HIS DIET CLOSELY. CONTINUE THE INJECTIONS . (2) PETER (obstructive sleep apnea): Comment: EXPECTED HE HAS MODERATELY SEVERE OBSTRUCTIVE SLEEP APNEA WITH MILD NOCTURNAL HYPOXEMIA. IT IS WELL CONTROLLED WITH THE USE OF CPAP. COMPLIANCE REPORT IS EXCELLENT AND HIS SLEEP IS VERY GOOD FOR 8-1/2 HOURS EVERY NIGHT. Code(s): G47.33 - Obstructive sleep apnea (adult) (pediatric) Category: Medical Plan: COMMENDED FOR GOOD COMPLIANCE AND ENCOURAGED TO KEEP ON USING THE CPAP REGULARLY EVERY NIGHT. Coding Level of Care Code Est Pt Level 3 (29771) Diagnoses Morbid (severe) obesity due to excess calories E66.01 PETER (obstructive sleep apnea) G47.33
== END 2024-11-13 11:34 | disposition home or self-care (01) ==
PROVIDERS: PCP Nurse Practitioner Family; Visit Provider Internal Medicine
DX: E66.01 Morbid (severe) obesity due to excess calories (principal); G47.33 Obstructive sleep apnea (adult) (pediatric)
CPT/HCPCS: 99213

== ENCOUNTER → 2024-11-13 10:42 | Outpatient (BNVA) | payer MEDICAID, SELFPAY | PROVIDERS: PCP Nurse Practitioner Family; Visit Provider Internal Medicine | DX: E66.01 Morbid (severe) obesity due to excess calories (principal); G47.33 Obstructive sleep apnea (adult) (pediatric); Z68.43 Body mass index [BMI] 50.0-59.9, adult | CPT/HCPCS: 99212 ==

== ENCOUNTER 2025-03-10 10:39 | Outpatient (REF) | payer MEDICAID, SELFPAY ==
[2025-03-10 11:32] LABS: Hematocrit 41.2 % (42.0-52.0); Hemoglobin 14.1 g/dl (14.0-18.0); Mean Corpuscular HGB Conc 34.2 g/dl (31.0-36.0); Mean Corpuscular Hemoglobin 30.1 pg (27.0-33.0); Mean Corpuscular Volume 87.8 fL (80.0-98.0); Mean Platelet Volume 10.4 fL (9.4-12.4); Platelet Count 329 X10*3/uL (160-400); Red Blood Count 4.69 X10*6/uL (4.60-5.80); Red Cell Distribution Width 12.9 % (11.0-16.0); White Blood Count 7.1 X10*3/uL (4.8-10.8)
[2025-03-10 11:42] LABS: Estimated Average Glucose 103 mg/dL; Hemoglobin A1c % 5.2 % (<6.0)
--- OUTSIDE RECORDS SUMMARY | 2025-03-10 11:56 | XMS_ITS | Encounter Summary ---
Author Organization [employer] Address [address] [place] [address] [address] [address] Care Team Providers Care Health Information Director Name Role Phone Norma Vasquez MD Primary Care Pro vider Reason for Visit * Reason Comments Med Refill Encounter Details Date Type Department Care Team (Late st Contact Info) Description 12/27/2023 Refill [facility] [address] [place] [phone] Fatuma Cole MD [address] [place] [address] [id number] Social History Tobacco Use Types Packs/Day Years Used Date Smoking Tobacco: Never Smokeless Tobacco: Never Alcohol Use Standard Drinks/Week Comments Never 0 (1 standard drink = 0.6 oz pur e alcohol) Depression Answer Date Recorded Patient Health Questionnaire-9 Score 2 08/14/2023 Patient Health Questionnaire-9 Score 2 08/14/2023 Last PHQ-9: Questionnaire Data Not on file 1 10/14/2022 Depression Answer Date Recorded Patient Health Questionnaire-2 Score 1 08/14/2023 Sex and Gender Information Value Date Recorded Sex Assigned at Male 07/17/2022 10:15 AM EDT Legal Sex Male 10:15 AM EDT Gender Identity Male 07/17/2022 10:15 AM EDT Sexual Orientation Bisexual 08/14/2023 10 :54 AM EST documented as of this encounter Plan of Treatment Upcoming Encounters Date Type Department Care Team (Late st Contact Info) Description 03/13/2025 11:15 AM EDT Office Visit [facility] [address] [place] [phone] Norma Vasquez MD [address] [place] [address] [place] [phone] documented as of this encounter Visit Diagnoses Not on filedocumented in this encounter Additional Health Concerns Assessment Noted Time PHQ-9 Depression Total Score: 2 08/14/20 23 10:23 AM EST documented as of this encounter Care Teams Health Information Director Relationship Specialty Start Date End Date Norma Vasquez MD [address] [place] [address] PCP - General Internal Medicine 06/22/23 documented as of this encounter
[2025-03-10 12:05] LABS: Alanine Aminotransferase 39 U/L (0-40); Alkaline Phosphatase 68 U/L (39-117); Anion Gap 11 (12-20); Aspartate Amino Transferase 26 U/L (5-37); Bilirubin Total 0.5 mg/dL (0.0-1.0); Blood Urea Nitrogen 15 mg/dL (9-16); Calcium 9.3 mg/dL (8.4-10.2); Carbon Dioxide 28 mmol/L (22-29); Chloride 106 mmol/L (96-108); Cholesterol 177 mg/dL (<200); Estimated Glomerular Filt Rate > 60; Glucose Random 105 mg/dL (60-115); HDL Cholesterol 48 mg/dL (>40); LDL Cholesterol Calculated 112 mg/dL (<100); Sodium 141 mmol/L (135-145); Total Protein 7.3 g/dL (6.5-8.0); Triglycerides 87 mg/dL (<150)
[2025-03-10 12:21] LABS: HBS Num1 1.47 mIU/mL (0-7.99); HBc Num1 0.15 S/CO (0.00-0.79); HBsAGNum1 0.32 S/CO (0.00-0.99); HIV AB/AG Nonreactive (Nonreactive); HIV Num 1 0.05 S/CO (0.00-0.99); Hepatitis B Core Antibody Nonreactive (Nonreactive); Hepatitis B Surface Antigen Negative (Negative); Syphilis Screen Nonreactive (Nonreactive); ~HepC Num1 0.16 S/CO (0.00-0.79); ~Hepatitis B Surface Antibody NONREACTIVE (Nonreactive); ~Hepatitis C Antibody Nonreactive (Nonreactive)
[2025-03-10 12:24] LABS: Vitamin D 25-OH Total 29.6 ng/mL (>30)
[2025-03-10 13:55] LABS: CT PCR NOT DETECTED (Not Detect.); NG PCR NOT DETECTED (Not Detect.)
== END 2025-03-10 10:40 | disposition home or self-care (01) ==
LOC: HO.HHCL 10:39
PROVIDERS: PCP Student in an Organized Health Care Education/Training Program; Visit Provider Student in an Organized Health Care Education/Training Program
DX: Z00.00 Encounter for general adult medical examination without abnormal findings (principal); Z11.4 Encounter for screening for human immunodeficiency virus [HIV]; Z20.2 Contact with and (suspected) exposure to infections with a predominantly sexual mode of transmission
CPT/HCPCS: 80053; 80061; 82306; 83036; 84443; 85027; 86704; 86706; 86780; 86803; 87340; 87389; 87491; 87591

== ENCOUNTER 2025-03-22 13:07 | Emergency (ER) | payer MEDICAID, SELFPAY ==
--- NOTE | ~2025-03-22 | XR_ITS ---
CLINICAL HISTORY: chest pain Two views of the chest. COMPARISON: None provided. FINDINGS: Normal heart and mediastinal contours. Low lung volumes. No consolidation. No pleural effusion or pneumothorax. No acute fracture. IMPRESSION: 1. No consolidation. This document has been electronically signed by: Wally Mckeon MD on 03/22/2025 15:00:52
--- NOTE | 2025-03-22 13:08 | ECG_ITS ---
Test Reason : CHEST PAIN Blood Pressure : */* mmHG Vent. Rate : 86 BPM Atrial Rate : 86 BPM P-R Int : 190 ms QRS Dur : 94 ms QT Int : 376 ms P-R-T Axes : 21 1 14 degrees QTcB Int : 449 ms Normal sinus rhythm Normal ECG When compared with ECG of 29-Nov-2023 08:05, No significant change was found Referred By: Astrid Zarate Electronically Signed By: Guido Stroud
[2025-03-22 13:26] VITALS: BP 139/86; PULSE 85; RESP 18; TEMP 36.8; O2SAT 100; BMI 55.9
--- NOTE | 2025-03-22 13:26 | ED.GENADULT ---
HPI - General Adult General Chief complaint: Chest Pain Stated complaint: chest pain Time Seen by Provider: 03/22/25 15:54 Related Data Home Medications ?Medication ?Instructions ?Recorded ?Confirmed amlodipine 5 mg tablet 5 mg PO QAM 08/16/23 11/13/24 cholecalciferol (vitamin D3) 25 25 mcg PO DAILY 05/14/24 11/13/24 mcg (1,000 unit) tablet losartan 100 1 tab PO DAILY 05/14/24 11/13/24 mg-hydrochlorothiazide 12.5 mg tablet tirzepatide (weight loss) 2.5 2.5 mg subcut QWEEK 11/13/24 11/13/24 mg/0.5 mL subcutaneous pen injector (Zepbound) Previous Rx's ?Medication ?Instructions ?Recorded metoprolol succinate 50 mg 50 mg PO DAILY #30 tabs 06/30/23 tablet,extended release 24 hr Allergies Allergy/AdvReac Type Severity Reaction Status Date / Time No Known Allergies Allergy Verified 03/22/25 13:28 [facility] Past Medical History Medical History PETER (obstructive sleep apnea) Morbid (severe) obesity due to excess calories Essential hypertension Surgical History No pertinent past surgical history Family History Family History Mother No problems noted. Father No problems noted. Social History Social History Alcohol intake: never Patient Tobacco Use Status: Never used Tobacco Advance Directives: No Advance Directives Information Provided: No Physical Exam ED Vital Signs: Vital Signs - 24 hr 03/22/25 13:26 03/22/25 16:07 Temperature 98.2 F 97.5 F Pulse Rate 85 74 Respiratory Rate 18 16 Blood Pressure 139/86 119/72 Pulse Oximetry 100 98 Oxygen Delivery Method Room Air Room Air BMI result Body Mass Index 55.9 Course Course Course Narrative: This is a rapid medical exam performed by Cristal Zarate NP: Additional HPI, ROS, PE not included below will be deferred to primary provider. Patient is a 34-year-old male with reported history of PETER on CPAP, morbid obesity, HTN presenting to the ED with complaint of chest tightness since or Sun night. Initially thought he was waking at night due to his CPAP. Also complains of throat and bilateral shoulder tightness. Plan: EKG, labs, CXR Medical Decision Making Lab Data 03/22/25 13:35 03/22/25 13:35 Labs: Lab Results 03/22/25 Range/Units 13:35 WBC 8.7 (4.8-10.8) X10*3/uL RBC 4.83 (4.60-5.80) X10*6/uL Hgb 14.5 (14.0-18.0) g/dl Hct 41.6 L (42.0-52.0) % MCV 86.1 (80.0-98.0) fL MCH 30.0 (27.0-33.0) pg MCHC 34.9 (31.0-36.0) g/dl RDW 12.7 (11.0-16.0) % Plt Count 328 (160-400) X10*3/uL MPV 9.7 (9.4-12.4) fL Immature Gran % (Auto) 0.6 H (0.0-0.4) % Neut % (Auto) 57.9 (45-73) % Lymph % (Auto) 31.6 (20-40) % [place] % (Auto) 8.2 (2-11) % Eos % (Auto) 1.4 (0-4) % Baso % (Auto) 0.3 (0-2) % Lymph # (Auto) 2.7 (1.2-4.9) X10*3/uL [place] # (Auto) 0.7 (0.1-1.2) X10*3/uL Eos # (Auto) 0.1 (0.0-0.4) X10*3/uL Baso # (Auto) 0.0 (0.0-0.2) X10*3/uL Abs Immat Gran (auto) 0.05 H (0.00-0.03) X10*3/uL Absolute Neuts (auto) 5.0 (2.0-8.3) x10*3/uL Absolute Nucleated RBC 0.000 (0.0-0.012) X10*3/uL Nucleated RBC % (auto) 0.0 (0.0-0.2) /100WBC Sodium 139 (135-145) mmol/L Potassium 3.8 (3.3-5.1) mmol/L Chloride 105 (96-108) mmol/L Carbon Dioxide 25 (22-29) mmol/L Anion Gap 13 (12-20) BUN 12 (9-16) mg/dL Creatinine 0.77 (0.5-1.4) mg/dL Estim Creat Clear Calc 210.4 Estimated GFR > 60 Random Glucose 94 (60-115) mg/dL Calcium 9.2 (8.4-10.2) mg/dL Magnesium 2.0 (1.6-2.6) mg/dL Total Bilirubin 1.0 (0.0-1.0) mg/dL AST 27 (5-37) U/L ALT 38 (0-40) U/L Alkaline Phosphatase 72 (39-117) U/L Troponin I High Sens < 2.7 (<3.5-35.0) ng/L Total Protein 7.7 (6.5-8.0) g/dL Albumin 4.3 (3.5-5.0) g/dL Influenza Type A (PCR) NEGATIVE (Negative) Influenza Type B (PCR) NEGATIVE (Negative) RSV RNA Qual (PCR) NEGATIVE (Negative) SARS-CoV-2 RNA (RT-PCR) NEGATIVE (Negative) Discharge Plan Discharge Clinical Impression: Chest pain Patient Disposition: Home, Self-Care Instructions: Chest Pain (DC) Additional Instructions: DISCHARGE DIAGNOSES: Chest pain unclear cause heart attack excluded reassuring lab work EKG HISTORY OF PRESENTATION: ?Chest pain for several days worse at night, tightness EMERGENCY DEPARTMENT COURSE,TESTS, TREATMENTS: While in the ED today you had lab work ECG heart attack enzyme test, chest x-ray this was reassuring DISCHARGE MEDICATIONS: ?[We have made no changes to your regular medication regimen] FOLLOW-UP: ?Call your primary or general physician soon as possible to discuss your symptoms, your ED visit and to discuss follow up plans Call your PCP 1st thing Sunday morning tomorrow to discuss your symptoms you may need outpatient referral or provocative testing INSTRUCTIONS ?& RETURN PRECAUTIONS: If any symptoms change first call your primary physician, if it is after-hours your primary doctors office should have a provider manager valuation you can speak with. If the symptoms are severe or very concerning to you then call 911 or return to the ED. Return for severe worsening chest pain Eugenio Stevenson MD Emergency Physician [facility] Prescriptions: No Action metoprolol succinate 50 mg tablet extended release 24 hr 50 mg PO DAILY Qty: 30 0RF amlodipine 5 mg tablet 5 mg PO QAM cholecalciferol (vitamin D3) 25 mcg (1,000 unit) tablet 25 mcg PO DAILY losartan-hydrochlorothiazide 100-12.5 mg tablet 1 tab PO DAILY Zepbound 2.5 mg/0.5 mL pen injector 2.5 mg subcut QWEEK Rx Instructions: for 4 weeks Print Language: [place] Islander
[2025-03-22 13:46] LABS: MANUAL DIFF FLAG NO
[2025-03-22 13:48] LABS: Hematocrit 41.6 % (42.0-52.0); Hemoglobin 14.5 g/dl (14.0-18.0); Imm Gran Abs Auto 0.05 X10*3/uL (0.00-0.03); Imm Gran Pct Auto 0.6 % (0.0-0.4); Lymphocytes Absolute Auto 2.7 X10*3/uL (1.2-4.9); Mean Corpuscular HGB Conc 34.9 g/dl (31.0-36.0); Mean Corpuscular Hemoglobin 30.0 pg (27.0-33.0); Mean Corpuscular Volume 86.1 fL (80.0-98.0); NRBC Abs Auto 0.000 X10*3/uL (0.0-0.012); NRBC Pct Auto 0.0 /100WBC (0.0-0.2); Platelet Count 328 X10*3/uL (160-400); Red Blood Count 4.83 X10*6/uL (4.60-5.80); White Blood Count 8.7 X10*3/uL (4.8-10.8)
[2025-03-22 14:08] LABS: Alanine Aminotransferase 38 U/L (0-40); Albumin Level 4.3 g/dL (3.5-5.0); Alkaline Phosphatase 72 U/L (39-117); Anion Gap 13 (12-20); Aspartate Amino Transferase 27 U/L (5-37); Blood Urea Nitrogen 12 mg/dL (9-16); Calcium 9.2 mg/dL (8.4-10.2); Carbon Dioxide 25 mmol/L (22-29); Chloride 105 mmol/L (96-108); Creatinine Clr Calc Pharmacy 210.4; Estimated Glomerular Filt Rate > 60; Magnesium 2.0 mg/dL (1.6-2.6); Potassium 3.8 mmol/L (3.3-5.1); Sodium 139 mmol/L (135-145); Total Protein 7.7 g/dL (6.5-8.0)
[2025-03-22 14:16] LABS: Troponin-I High Sensitivity < 2.7 ng/L (<3.5-35.0)
[2025-03-22 14:24] LABS: Resp Syncy Virus RNA Qual PCR NEGATIVE (Negative); SARS COV2 PCR INHOUSE NEGATIVE (Negative)
--- NOTE | 2025-03-22 15:45 | PC.NURSE ---
Patient A&Ox 3. Patient presents to [facility] c/o chest pain rated 7/10 radiating down left arm. Patient has been feeling like this since last Wed, but its seems to be getting worse as it wakes him up from sleep. Patient says It feels like my heart is racing bp 135/7277 bpm. -n/v, -SOB, -dizzines/lightheadedness. EKG = NSR, CXR unremarkable. Patient on ekg monitor NSR Provider in to see patient. plan of care on going
[2025-03-22 16:07] VITALS: BP 119/72; PULSE 74; RESP 16; TEMP 36.4; O2SAT 98
[2025-03-22 16:25] VITALS: BP 119/72; PULSE 74; RESP 16; TEMP 36.4; O2SAT 98
== END 2025-03-22 16:26 | disposition home or self-care (01) ==
PROVIDERS: Registered Nurse Emergency; Emergency Provider Emergency Medicine; PCP Student in an Organized Health Care Education/Training Program
DX: R07.89 Other chest pain (principal); Z79.899 Other long term (current) drug therapy; Z03.818 Encounter for observation for suspected exposure to other biological agents ruled out
CPT/HCPCS: 71046; 80053; 83735; 84484; 85025; 87637; 93005; 99283; 99285

== ENCOUNTER → 2025-03-22 13:08 | Outpatient (BNV) | payer MEDICAID, SELFPAY | PROVIDERS: Emergency Provider Emergency Medicine; PCP Student in an Organized Health Care Education/Training Program; Visit Provider Internal Medicine Cardiovascular Disease | DX: R07.89 Other chest pain (principal) | CPT/HCPCS: 93010 ==

== ENCOUNTER → 2025-03-22 13:28 | Outpatient (BNV) | payer MEDICAID, SELFPAY | PROVIDERS: Emergency Provider Emergency Medicine; PCP Student in an Organized Health Care Education/Training Program; Visit Provider Radiology Diagnostic Radiology | DX: R07.9 Chest pain, unspecified (principal) | CPT/HCPCS: 71046 ==

== ENCOUNTER 2025-05-14 10:44 | Outpatient (AMB) | payer MEDICAID, SELFPAY ==
--- NOTE | 2025-05-14 11:06 | MHC.OFFVIS ---
Vital Signs 05/14/25 11:07 Height 5 ft 9 in Weight 365 lb 15.477 oz BMI 54.0 BP 120/82 Blood Pressure Location Lt brachial Position Sitting Pulse 84 Pulse Source Pulse Oximeter Pulse Oximetry (%) 98 Oxygen Delivery Method Room Air Intake Visit Reasons: Sleep apnea Intake Note: pt is here for follow up of PETER, and he state it is going well with cpap. Allergies No Known Allergies Allergy (Verified 05/14/25 11:27) Medication List - Last Reconciled 05/14/25 by Елена Perea MD amlodipine 5 mg PO QAM cholecalciferol (vitamin D3) 25 mcg PO DAILY losartan-hydrochlorothiazide 100-12.5 mg 1 tab PO DAILY metoprolol succinate ER 50 mg PO DAILY tirzepatide (weight loss) (Zepbound) 2.5 mg subcut QWEEK Do you need a note to return to daycare/school/sports/work: No HPI HPI Sleep apnea: Details: THIS 34 YEARS OLD SUPER MORBIDLY OBESE, GENTLEMAN WITH OBSTRUCTIVE SLEEP APNEA,IS HERE FOR FOLLOW-UP AFTER 6 MONTHS. HE HAS BEEN USING CPAP VERY REGULARLY EVERY NIGHT, AND AVERAGE SLEEP PER NIGHT IS 9 HOURS 25 MINUTE. FEELS MUCH BETTER, HE HAS NO DISCOMFORT FROM THE MASK. HIS SLEEP QUALITY IS GOOD. HE USES 9+ HOURS BECAUSE AFTER HE WAKES UP IN THE MORNING GOES BACK TO SLEEP FOR A FEW EXTRA HOURS. WITH PROPER DIETING AND USE OF TIRZEPATIDE INJECTION , HE HAS LOST 13 LB IN THE LAST 6 MONTHS. HE EXPECTS TO KEEP ON LOSING WEIGHT. AND HE IS STARTING TO WALK MORE. [facility] Medical History PETER (obstructive sleep apnea) Morbid (severe) obesity due to excess calories Essential hypertension Surgical History No pertinent past surgical history Family History Mother No problems noted. Father No problems noted. Social History Alcohol intake: never Patient Tobacco Use Status: Never used Tobacco Review of Systems Const All systems reviewed & are unremarkable except as noted in HPI and below Eyes Reports no additional complaints ENT Reports no additional complaints Card Denies chest pain, Denies irregular heart rhythm, Denies leg edema and Denies dyspnea on exertion Resp Denies cough, Denies hemoptysis, Denies dyspnea on exertion and Denies wheezing GI Reports no additional complaints Reports no additional complaints Musc Reports no additional complaints Skin/Breast Reports system reviewed and no additional complaints, except as documented Neuro Reports no additional complaints Psych Reports no additional complaints Aller/Immun Denies wheezing Physical Exam Vital Signs: Last Vital Signs Pulse 84 05/14/25 11:07 BP 120/82 05/14/25 11:07 Pulse Ox 98 05/14/25 11:07 Oxygen Delivery Method Room Air 05/14/25 11:07 BMI result Body Mass Index 54.0 Const Other: GROSSLY OBESE WITH A ROUND FACE General: comfortable, no acute distress, alert and awake Orientation/consciousness: patient oriented x3 HEENT Head: Yes normal to inspection General nose exam: No nasal polyps present and No nasal discharge present Face and sinus: Yes sinuses nontender Mouth: oropharynx abnormals (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, MALLAMPATI CLASS 4) Throat: Yes posterior oropharynx normal Eyes General: appearance normal, both eyes and all related structures Neck Neck: Yes normal visual inspection, Yes no lymphadenopathy, Yes trachea midline, Yes no JVD and Yes other (NECK SIZE 20 IN) Thyroid: Thyroid normal Chest Chest palpation & inspection: normal inspection of the chest, normal palpation of entire chest wall and no tenderness Resp Effort & Inspection: normal respiratory effort Auscultation: clear to auscultation bilaterally, no crackles, no rhonchi and no wheezes Cardio Palpation: normal PMI Rate: regular rate Rhythm: regular rhythm Heart sounds: no gallops and no murmurs Peripheral pulses: Peripheral pulses 2+ throughout GI Palpation (GI): Soft to palpation, nontender, No hepatosplenomegaly present, no masses and Other GI palpation findings present (ABDOMEN IS GROSSLY OBESE AND PROTUBERANT) Auscultation: normal bowel sounds Back/Spine/Pelvis Thoracic/Lumbar Spine: thoracic and lumbar spine normal to inspection Skin General skin exam: no rashes or lesions noted Neuro General: patient oriented x3 and no focal motor deficits Cranial nerves: Yes CN's II-XII intact bilaterally Extrem General: Yes normal to inspection, Yes no clubbing, cyanosis or edema and Yes no calf tenderness Psych Speech and movement: Normal speech and movement present Results Reviewed Results Reviewed: COMPLIANCE REPORT FOR THE LAST 30 NIGHTS IS REVIEWED WHICH IS EXCELLENT, USING 30/30 NIGHTS, AND AVERAGE NIGHTLY USAGE IS 9 HOURS 25 MINUTE. HE IS USING FULLFACE MASK , THERE IS NO LEAKAGE AND RESIDUAL AHI 0.2 Assessment & Plan Assessment & Plan (1) Morbid (severe) obesity due to excess calories: Comment: PATIENT IS DEFINITELY MORE SERIOUS ABOUT LOSING WEIGHT. HE IS CURRENTLY ON ZEPBOUND INJECTIONS AND IS LOSING WEIGHT, ABOUT WHICH HE IS QUITE HAPPY AND EXCITED. Code(s): E66.01 - Morbid (severe) obesity due to excess calories Category: Medical Plan: COMMENDED FOR LOSING WEIGHT, TALKED ABOUT HIS DIET AND LEVEL OF EXERCISE ADVISED TO STAY ON TIRZEPATIDE INJECTIONS AND LOSE MORE WEIGHT. (2) PETER (obstructive sleep apnea): Comment: EXPECTED HE HAS MODERATELY SEVERE OBSTRUCTIVE SLEEP APNEA WITH MILD NOCTURNAL HYPOXEMIA. IT IS WELL CONTROLLED WITH THE USE OF CPAP. COMPLIANCE REPORT IS EXCELLENT AND HIS SLEEP IS VERY GOOD FOR 9-1/2 HOURS EVERY NIGHT. Code(s): G47.33 - Obstructive sleep apnea (adult) (pediatric) Category: Medical Plan: COMMENDED FOR GOOD COMPLIANCE AND ADVISED TO CONTINUE USING THE CPAP REGULARLY Coding Level of Care Code Est Pt Level 3 (11179) Diagnoses Morbid (severe) obesity due to excess calories E66.01 PETER (obstructive sleep apnea) G47.33
[2025-05-14 11:07] VITALS: BP 120/82; PULSE 84; O2SAT 98; BMI 54.0
--- OUTSIDE RECORDS SUMMARY | 2025-05-14 12:11 | XMS_ITS | Encounter Summary ---
Author Organization [employer] Address [address] [facility] [address] [place] [address] Care Team Providers Care Mail Machine Operator Name Role Phone Norma Vasquez MD Primary Care Pro vider Reason for Visit * Reason Comments Med Refill Encounter Details Date Type Department Care Team (Late st Contact Info) Description 02/12/2025 Refill [facility] [address] [place] [address] Norma Vasquez MD [address] [place] [address] Social History Tobacco Use Types Packs/Day Years Used Date Smoking Tobacco: Never Passive Smoke Exposure: Never Smokeless Tobacco: Never Alcohol Use Standard Drinks/Week Comments Never 0 (1 standard drink = 0.6 oz pur e alcohol) Depression Answer Date Recorded Patient Health Questionnaire-9 Score 0 01/08/2025 Patient Health Questionnaire-9 Score 0 01/08/2025 Last PHQ-9: Questionnaire Data Not on file 0 01/08/2025 Housing Stability Answer Date Recorded What is your housing situation today? I have zeina serrano 01/30/[address] you li ve. Do you have problems with any of the following? None of the above 01/30/2024 Food Insecurity Answer Date Recorded Within the past 12 months, y ou worried that your food would run out before you got money to buy more: Never True 01/30/2024 Within the past 12 months,th e food you bought just didn't last and you didn't have enough money to get more: Never True Transportation Answer Date Recorded In the past 12 months, has l ack of transportation kept you from medical appts, meetings, work or from getting things needed for daily living? No 01/30/2024 Utilities Answer Date Recorded In the past 12 months, has t he electric, gas, oil or water company threatened to shut off services in your home? No 01/30/2024 Depression Answer Date Recorded Patient Health Questionnaire-2 Score 0 01/08/2025 Internet Access Answer Date Recorded Internet Access Q1 Yes 12/30/2024 Internet Access Q2 Not on file 12/30/2024 Sex and Gender Information Value Date Recorded Sex Assigned at Male 07/17/2022 10:15 AM EDT Legal Sex Male 10:15 AM EDT Gender Identity Male 07/17/2022 10:15 AM EDT Sexual Orientation Bisexual 08/14/2023 10 :54 AM EST documented as of this encounter Miscellaneous Notes * Telephone Encounter - Norma Sequeira MD - 02/13/2025 9:04 AM EDT Change in dose documented in this encounter Plan of Treatment Upcoming Encounters Date Type Department Care Team (Late st Contact Info) Description 06/16/2025 11:15 AM EDT Office Visit [facility] [address] [place] [phone] Norma Vasquez MD [address] [place] [phone] documented as of this encounter Visit Diagnoses Not on filedocumented in this encounter Additional Health Concerns Assessment Noted Time PHQ-9 Depression Total Score: 0 01/09/20 25 10:17 AM EDT documented as of this encounter Care Teams Mail Machine Operator Relationship Specialty Start Date End Date Norma Vasquez MD [address] [place] [phone] PCP - General Internal Medicine 06/22/23 documented as of this encounter
--- OUTSIDE RECORDS SUMMARY | 2025-05-14 12:11 | XMS_ITS | Encounter Summary ---
Author Organization [employer] [facility] Address [address] [place] [address] 7 [place] [address] Care Team Providers Care Laundromat Manager Name Role Phone Lissa PalafoxP Primary Care Provider Emilie Norma Sinha MD Primary Care Pro vider Encounter Details Date Type Department Care Team (Latest Contact Info) Description 11/06/[address] [facility] CONVERSIONS Dental, Provider, DDS Social History Tobacco Use Types Packs/Day Years Used Date Smoking Tobacco: Never Assessed Sex and Gender Information Value Date Recorded Sex Assigned at Male 07/17/2022 10:15 AM EDT Legal Sex Male 10:15 AM EDT Gender Identity Male 07/17/2022 10:15 AM EDT Sexual Orientation Bisexual 08/14/2023 10 :54 AM EST documented as of this encounter Plan of Treatment Upcoming Encounters Date Type Department Care Team (Late st Contact Info) Description 06/16/2025 11:15 AM EDT Office Visit [facility] MEDICINE [address] [place] [address] Norma Vasquez MD [address] [place] [address] documented as of this encounter Visit Diagnoses Not on filedocumented in this encounter Care Teams Laundromat Manager Relationship Specialty Start Date End Date Lissa Palafox FNP PCP - General Family Medicine 02/28/22 02/27/23 Norma Vaqsuez MD [address] [place] [address] PCP - General Internal Medicine 06/22/23 documented as of this encounter
--- OUTSIDE RECORDS SUMMARY | 2025-05-14 12:11 | XMS_ITS | Encounter Summary ---
Author Organization [employer] Address [address] [place] [address] [address] [address] Care Team Providers Care Hosted Services Analyst Name Role Phone Norma Vasquez MD Primary Care Pro vider Reason for Visit * Reason Comments Med Refill Encounter Details Date Type Department Care Team (Late st Contact Info) Description 01/23/2024 Refill [facility] MEDICINE [address] [place] [address] [phone] Fatuma Cole MD [address] [place] [address] [phone] Social History Tobacco Use Types Packs/Day Years [...] Encounters Date Type Department Care Team (Late Contact Info) Description 06/16/2025 11:15 AM EDT Office Visit [facility] MEDICINE [address] [place] [phone] Norma Vasquez MD [address] [place] [address] [place] [address] documented as of this encounter Visit Diagnoses Not on filedocumented in this encounter Additional Health Concerns Assessment Noted Time PHQ-9 Depression Total Score: 2 08/14/20 23 10:23 AM EST documented as of this encounter Care Teams Hosted Services Analyst Relationship Specialty Start Date End Date Norma Vasquez MD [address] [place] [address] PCP - General Internal Medicine 06/22/23 documented as of this encounter
--- OUTSIDE RECORDS SUMMARY | 2025-05-14 12:11 | XMS_ITS | Encounter Summary ---
Author Organization [employer] Address [address] [place] [address] [place] [address] Care Team Providers Care Rivet Passer Name Role Phone Norma Vasquez MD Primary Care Pro vider Reason for Visit * Reason Comments Med Refill Encounter Details Date Type Department Care Team (Late st Contact Info) Description 12/27/2023 Refill [facility] MEDICINE [address] [place] [phone] Fatuma Cole MD [address] [place] [address] [phone] Social History Tobacco Use Types Packs/Day Years [...] Description 06/16/2025 11:15 AM EDT Office Visit [facility] MEDICINE [address] [place] [phone] Norma Vasquez MD [address] [place] [address] [place] [address] documented as of this encounter Visit Diagnoses Not on filedocumented in this encounter Additional Health Concerns Assessment Noted Time PHQ-9 Depression Total Score: 2 08/14/20 23 10:23 AM EST documented as of this encounter Care Teams Rivet Passer Relationship Specialty Start Date End Date Norma Vasquez MD [address] [place] [address] PCP - General Internal Medicine 06/22/23 documented as of this encounter
--- OUTSIDE RECORDS SUMMARY | 2025-05-14 12:11 | XMS_ITS | Encounter Summary ---
Author Organization [employer] [facility] Address [address] [place] [address] [place] [address] Care Team Providers Care Client Hr Manager Name Role Phone Norma Vasquez MD Primary Care Pro vider Reason for Visit * Reason Comments Med Refill Encounter Details Date Type Department Care Team (Late st Contact Info) Description 06/22/2023 Refill [facility] MEDICINE [address] [place] [phone] Lissa Palafox FNP Social History Tobacco Use Types Packs/Day Years Used Date Smoking Tobacco: Never Smokeless Tobacco: Never Alcohol Use Standard Drinks/Week Comments Never 0 (1 standard drink = 0.6 oz pur e alcohol) Sex and Gender Information Value Date Recorded Sex Assigned at Male 07/17/2022 10:15 AM EDT Legal Sex Male 10:15 AM EDT Gender Identity Male 07/17/2022 10:15 AM EDT Sexual Orientation Bisexual 08/14/2023 10 :54 AM EST documented as of this encounter Plan of Treatment Upcoming Encounters Date Type Department Care Team (Late st Contact Info) Description 06/16/2025 11:15 AM EDT Office Visit [facility] MEDICINE [address] [place] [phone] Norma Vasquez MD [address] [place], [place] [phone] documented as of this encounter Visit Diagnoses Not on filedocumented in this encounter Care Teams Client Hr Manager Relationship Specialty Start Date End Date Norma Vasquez MD [address] [place], [place] [phone] PCP - General Internal Medicine 06/22/23 documented as of this encounter
--- OUTSIDE RECORDS SUMMARY | 2025-05-14 12:11 | XMS_ITS | Encounter Summary ---
Author Organization [employer] Address [address] [facility] [address] [place] [address] Care Team Providers Care Family Centered Specialist Name Role Phone Norma Vasquez MD Primary Care Pro vider Reason for Visit * Reason Comments Med Refill Encounter Details Date Type Department Care Team (Late st Contact Info) Description 06/19/2024 Refill [facility] MEDICINE [address] [place] [address] Norma Vasquez MD [address] [place] [address] Social History Tobacco Use Types Packs/Day Years Used Date Smoking Tobacco: Never Passive Smoke Exposure: Never Smokeless Tobacco: Never Alcohol Use Standard Drinks/Week Comments Never 0 (1 standard drink = 0.6 oz pur e alcohol) Depression Answer Date Recorded Patient Health Questionnaire-9 Score 2 08/14/2023 Patient Health Questionnaire-9 Score 2 08/14/2023 Last PHQ-9: Questionnaire Data Not on file 1 10/14/2022 Housing Stability Answer Date Recorded What is [...] Description 06/16/2025 11:15 AM EDT Office Visit [facility] MEDICINE [address] [place] [phone] Norma Vasquez MD [address] [place] [phone] documented as of this encounter Visit Diagnoses Not on filedocumented in this encounter Additional Health Concerns Assessment Noted Time PHQ-9 Depression Total Score: 2 08/14/20 23 10:23 AM EST documented as of this encounter Care Teams Family Centered Specialist Relationship Specialty Start Date End Date Norma Vasquez MD [address] [place] [phone] PCP - General Internal Medicine 06/22/23 documented as of this encounter
--- OUTSIDE RECORDS SUMMARY | 2025-05-14 12:11 | XMS_ITS | Encounter Summary ---
Author Organization [employer] Address [address] [place] [address] [address] [address] Care Team Providers Care Travel Professional Name Role Phone Norma Vasquez MD Primary Care Pro vider Reason for Visit * Reason Comments Med Refill Encounter Details Date Type Department Care Team (Late st Contact Info) Description 12/03/[address] [facility] MEDICINE [address] [place] [phone] Norma Vasquez MD [address] [place], [place] [phone] Social History Tobacco Use Types Packs/Day Years [...] Description 06/16/2025 11:15 AM EDT Office Visit [facility] MEDICINE [address] [place] [phone] Norma Vasquez MD [address] [place] [address] documented as of this encounter Visit Diagnoses Not on filedocumented in this encounter Additional Health Concerns Assessment Noted Time PHQ-9 Depression Total Score: 2 08/14/20 10:23 AM EST documented as of this encounter Care Teams Travel Professional Relationship Specialty Start Date End Date Norma Vasquez MD [address] [place] [address] PCP - General Internal Medicine 06/22/23 documented as of this encounter
--- OUTSIDE RECORDS SUMMARY | 2025-05-14 12:11 | XMS_ITS | Encounter Summary ---
Author Organization [employer] Address [address] [facility] 7[address] [place] [address] Care Team Providers Care Healthcare Market Consultant Name Role Phone Norma Vasquez MD Primary Care Pro vider Encounter Details Date Type Department Care Team (Latest Contact Info) Description 03/23/2025 Results Follow-Up [facility] MEDICINE [address] [place] [address] Norma Vasquez MD [address] [place] [address] CBC auto differential, Comprehensive Metabolic Panel, Magnesium, Additional followed-up results: 2 Social History Tobacco Use Types Packs/Day Years [...] as of this encounter Miscellaneous Notes * Result Encounter Note - Norma Sequeira MD - 03/23/2025 3:10 PM EDT Labs done by outside provider documented in this encounter Plan of Treatment Upcoming Encounters Date Type Department Care Team (Late st Contact Info) Description 06/16/2025 11:15 AM EDT Office Visit [facility] MEDICINE [address] [place] [phone] Norma Vasquez MD [address] [place] [phone] documented as of this encounter Visit Diagnoses Not on filedocumented in this encounter Additional Health Concerns Assessment Noted Time PHQ-9 Depression Total Score: 0 01/09/20 25 10:17 AM EDT documented as of this encounter Care Teams Healthcare Market Consultant Relationship Specialty Start Date End Date Norma Vasquez MD [address] [place] [phone] PCP - General Internal Medicine 06/22/23 documented as of this encounter
--- OUTSIDE RECORDS SUMMARY | 2025-05-14 12:11 | XMS_ITS | Clinical Summary ---
Author Organization [employer] Address [address] [facility] [address] [place] [address] Care Team Providers Care Hot Top Liner Helper Name Role Phone Norma Vasquez MD Primary Care Pro vider Allergies No known active allergies Medications * This document contains information received from the source organization and may not represent a complete record from that organization. metoprolol succinate XL (Toprol-XL) 50 MG 24 hr tablet TAKE 1 TABLET (50 MG) BY MOUTH ONCE PER DAY. DO NOT CRUSH OR CHEW. 90 tablet 1 025 Active losartan-hydr oCHLOROthiazi de (Hyzaar) 100-12.5 MG tablet TAKE 1 TABLET BY MOUTH EVERY DAY 90 tablet 1 025 Active cholecalcifer ol (Vitamin D-3) 50 MCG (1999 UT) capsule Take 1 capsule (50 mcg) by mouth Once per day. 90 capsule 1 025 Active Tirzepatide-W eight Management (Zepbound) 12.5 MG/0.5ML solution auto-injector Inject 0.5 mL (12.5 mg) as directed 1 (one) time per week. INJECT ONE PEN (=12.5 MG) SUBCUTANEOUSLY ONCE A WEEK 2 mL 025 Active Alcohol Swabs (Alcohol Prep) 70 % pads USE DIRECTED ON SKIN ONCE A WEEK PRIOR WEGOVY USE 100 each 11 025 Active amLODIPine (Norvasc) 5 MG tablet TAKE 1 TABLET BY MOUTH EVERY DAY IN THE MORNING 90 tablet 1 025 Active Alcohol Swabs (Alcohol Prep) 70 % pads USE DIRECTED ON SKIN ONCE A WEEK prior wegovy use 100 each 11 024 2024 Discontinued amLODIPine (Norvasc) 5 MG tablet TAKE 1 TABLET BY MOUTH EVERY DAY IN THE MORNING 90 tablet 025 2024 Discontinued(R eorder (will not trigger notification to Pharmacy)) Tirzepatide-W eight Management (Zepbound) 10 MG/0.5ML solution auto-injector Inject 0.5 mL (10 mg) under the skin 1 (one) time per week. 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 Essential hypertension 01/01/2019 Assessment & Plan (06/26/2023 8:07 PM EDT): Repeated BP manually 150/100, HR 92x' Regular rhythm -will refill today his BB ( metoprolol 12.5 mg BID) and to continue losartan 100 mg daily,amlodipine 5 mg daily -per pt at home BP is < 140/90 when taking BB but run out of med for last week ---will resume current BB dose but if elevataed BP at next visit will increase BB dose vs amlodipine dose -advised pt to f up w government relations director -scheduled apt for 08/16/2023 and with me 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 Date Type Department Care Team Description 04/15/2025 Refill [facility] [address] [place] [address] Lacey Kramer MD 04/15/2025 Refill [facility] [address] [place] [address] Norma Vasquez MD 03/23/2025 Results Follow-Up [facility] [address] [place] [address] Norma Vasquez MD CBC auto differential, Comprehensive Metabolic Panel, Magnesium, Additional followed-up results: 2 03/22/2025 Orders Only GENERIC EXTERNAL DATA DEPARTMENT Provider, Generic External Data 03/16/2025 Telephone [facility] [address] [place] [address] Norma Vasquez MD Appointment Confirmation 03/13/2025 11:15 AM EDT Office Visit [facility] [address], [place] [address] Norma Vasquez MD Essential hypertension (Primary Dx); Morbid obesity (CMS/HCC); Health care maintenance; PETER (obstructive sleep apnea) 03/13/2025 Travel 03/12/2025 Telephone [facility] [address] [place] [address] Norma Vasquez MD CHART PREP 03/04/2025 Telephone [facility] [address], [place] [address] Norma Vasquez MD Prior Authorization 03/01/2025 Refill [facility] [address], [place] [address] Lacey Kramer MD 02/13/2025 Orders Only [facility] [address] [place] [address] Norma Vasquez MD 02/12/2025 Refill [facility] [address], [place] [address] Lacey Kramer MD 02/12/2025 Refill [facility] [address], [place] [address] Norma Vasquez MD from Last 3 Months Immunizations Immunization Administration Dates Next Due Influenza injectable quadrivalent preservative f ree 08/14/2023,07/21/2020 Pfizer Covid-19 Vaccine 12+ 12/05/2023 Tdap 04/30/2018 Family History Medical History Relation Name Comments HTN Father unspeified heart dx Father's Brother DM2 Maternal Grandmother breast ca 60s Maternal Grandmother DM2 Mother Relation Name Status Comments Father Father's Brother Maternal Grandmother Mother Social History Tobacco Use Types Packs/Day Years Used Date Smoking Tobacco: Never Passive Smoke Exposure: Never Smokeless Tobacco: Never Tobacco Cessation:Counseling Given: Not Answered Alcohol Use Standard Drinks/Week Comments Never 0 [...] Orientation Bisexual 08/14/2023 10 :54 AM EST Last Filed Vital Signs Vital Sign Reading Time Taken Comments Blood Pressure 140/90 03/13/2025 11:55 AM EDT Pulse 90 03/13/2025 11:12 AM EDT Temperature 36.6 C (97.8 F) 03/13/2025 11:12 AM EDT Respiratory Rate 20 03/13/2025 11:12 AM EDT Oxygen Saturation 98% 03/13/2025 11:12 AM EDT Inhaled Oxygen Concentration - - Weight 176 kg (387 lb 3.2 oz) 03/13/2025 11:12 A M EDT Height 175.3 cm (5' 9 ) 03/13/2025 11:12 AM EDT Body Mass Index 57.18 03/13/2025 11:12 AM EDT Plan of Treatment Upcoming Encounters Date Type Department Care Team (Late st Contact Info) Description 06/16/2025 11:15 AM EDT Office Visit [facility] [address] [place], [place] [phone] Norma Vasquez MD [address] [place], [place] [phone] Health Maintenance Due Date Last Done Comments Family Planning (PISQ) 2004 HPV Vaccines (1 - Male 3-dos e series) 2004 Hepatitis B Vaccines (1 of 3 - 19+ 3-dose series) 2008 COVID-19 Vaccine ( - 2023-2 5 season) 2024 12/05/2023, 10/18/2021, 12/25/2020 Influenza Vaccine (#1) 2025 , 07/21/2020 SDOH Screening 12/30/2025 12/30/2024 Alcohol/Substance Use Screening 01/08/2026 01/08/2025 Depression Screening 01/08/2026 01/08/2025, 01/08/2025 Disability Screening 03/13/2026 03/13/2025 Tobacco Screening 03/13/2026 03/13/2025 DTaP/Tdap/Td Vaccines (2 - T d or Tdap) 04/30/2028 04/30/2018 Lipid Panel 03/10/2030 03/10/2025, 09/11/2023, 10/07/2020 Zoster Vaccines (1 of 2) 2039 RSV Patients and Patients Aged 60 years or older (1 - 1-dose 75+ series) 2064 HIV Screening Completed 03/10/2025, 09/11/2023 Hepatitis C Screening Completed 03/10/2025 , 09/11/2023 HIB Vaccines Aged Out No longer eligi ble based on patient's age to complete this topic Hepatitis A Vaccines Aged Out No long er eligible based on patient's age to complete this topic IPV Vaccines Aged Out No longer eligi ble based on patient's age to complete this topic Meningococcal B Vaccine Aged Out No l onger eligible based on patient's age to complete this topic Meningococcal Vaccine Aged Out No jonathon jhoana eligible based on patient's age to complete this topic Pneumococcal Vaccine: Pediatrics (0 to 5 Years) and At-Risk Patients (6 to 49) Years Aged Out No longer eligible b ased on patient's age to complete this topic RSV under 20 months Aged Out No longe r eligible based on patient's age to complete this topic Rotavirus Vaccines Aged Out No longer eligible based on patient's age to complete this topic Procedures Procedure Name Priority Date/Time Associated Diagnosis Comments XR CHEST 2 VIEWS Routine 03/22/2025 3:00 PM EDT HIGH SENSITIVITY TROPONIN I Routine 03/22/2025 1:35 PM EDT MAGNESIUM Routine 03/22/2025 1:35 PM EDT COMPREHENSIVE METABOLIC PANEL Routine 03/22/2025 1:35 PM EDT CBC WITH AUTO DIFFERENTIAL Routine 03/22/2025 1:35 PM EDT SARS COV2/INFLUENZA A/B AND RSV RNA QL NAAT Routine 03/22/2025 1:35 PM EDT VITAMIN D,25-OH,TOTAL,IA Routine 03/10/2025 10:43 AM EDT Annual physical exam TSH W/REFLEX TO FT4 Routine 03/10/2025 1 0:43 AM EDT Annual physical exam SYPHILIS SCREEN Routine 03/10/2025 10:43 AM EDT Annual physical exam LIPID PANEL, STANDARD Routine 03/10/2025 10:43 AM EDT Annual physical exam HIV 1/2 ANTIGEN/ANTIBODY, FOURTH GENERATION W/RFL Routine 03/10/2025 10:43 AM EDT Annual physical exam HEPATITIS C AB W/REFL TO HCV RNA, QN, PCR Routine 03/10/2025 10:43 AM EDT Annual physical exam HEPATITIS B SURFACE ANTIGEN, EIA Routine 03/10/2025 10:43 AM EDT Annual physical exam HEPATITIS B SURFACE ANTIBODY, QUALITATIVE Routine 03/10/2025 10:43 AM EDT Annual physical exam HEPATITIS B CORE AB TOTAL Routine 03/10/2025 10:43 AM EDT Annual physical exam HEMOGLOBIN A1C Routine 03/10/2025 10:43 AM EDT Annual physical exam COMPREHENSIVE METABOLIC PANEL Routine 03/10/2025 10:43 AM EDT Annual physical exam CBC Routine 03/10/2025 10:43 AM EDT Annual physical exam CHLAMYDIA/N. GONORRHOEAE RNA, TMA, UROGENITAL Routine 03/10/2025 10:43 AM EDT Annual physical exam from Last 3 Months Results * XR Chest 2 Views (03/22/2025 3:00 PM EDT) Anatomical Region Laterality Modality Chest Radiographic Ameena ging 03/22/2025 3:00 PM EDT Narrative 03/22/2025 3:02 PM EDT [address] [address] XRay Report Signed Patient: Duran Baca MR#: [id number] : 1990 Acct:[id number] Age/Sex: 34 / M ADM Date: 03/22/25 Loc: HO.ED Attending Dr: Ordering Physician: Astrid Zarate NP Date of Service: 03/22/25 Procedure(s): XR chest 2V Accession Number(s): [id number] cc: Norma Vasquez MD; Astrid Zarate NP CLINICAL HISTORY: chest pain Two views of the chest. COMPARISON: None provided. FINDINGS: Normal heart and mediastinal contours. Low lung volumes. No consolidation. No pleural effusion or pneumothorax. No acute fracture. IMPRESSION: 1. No consolidation. This document has been electronically signed by: Wally Mckeon MD on 03/22/2025 15:00:52 Dictated By: Wally Mckeon MD Signed By: <Electronically signed by Wally Mckeon MD in OV> 03/22/25 1502 DD/ 1500 TD/TT: 03/22/25 1500 Phosphatic Fertilizer Supervisor: Procedure Note Donotuseinterpreter, Image - 03/22/2025 [place] [address] XRay Report Signed Patient: Kristen Baca#: [id number] : 1990Acct:[id number] Age/Sex: 34 / MADM Date: 03/22/25 Loc: .ED Attending Dr: Ordering Physician: Astrid Zarate NP Date of Service: 03/22/25 Procedure(s): XR chest 2V Accession Number(s): [id number] cc: Norma Vasquez MD; Astrid Zarate NP CLINICAL HISTORY: chest pain Two views of the chest. COMPARISON: None provided. FINDINGS: Normal heart and mediastinal contours. Low lung volumes. No consolidation. No pleural effusion or pneumothorax. No acute fracture. IMPRESSION: 1. No consolidation. This document has been electronically signed by: Wally Mckeon MD on 03/22/2025 15:00:52 Dictated By: Wally Mckeon MD Signed By: <Electronically signed by Wally Mckeon MD in OV> 03/22/25 1502 DD/ 1500 TD/TT: 03/22/25 1500 Phosphatic Fertilizer Supervisor: us [facility] External Provider IMG XR PROCEDURES Final Result * High Sensitivity Troponin I (03/22/2025 1:35 PM EDT) Pathologist [facility] TROPONIN I HIGH SENSITIVITY <2.7 <3.5 - 35.0 ng/L [facility] Comment:The Valerio high sens itivity Troponin-I results should beused in conjunction with other diagnostic information suchas ECG, clinical observations and information, and patientsymptoms to aid in the diagnosis of MS. 03/22/2025 1:35 PM EDT 03/22/2025 1:44 PM EDT Generic External Data Provider LAB BLOOD ORDERAB LES Final Result [facility] [address] [place] [address] [phone] * SARS-CoV-2 RNA, Influenza A/B, and RSV RNA, Ql NAAT (03/22/2025 1:35 PM EDT) Pathologist [facility] Influenza A PCR NEGATIVE Negative [facility] Influenza B PCR NEGATIVE Negative [facility] Resp Syncy Virus RNA Qual PCR NEGATIVE Negative [facility] SARS COV2 PCR NEGATIVE Negative [facility] Comment:All test results mus t be correlated with clinical findings.Negative results do not preclude SARS-CoV2, influenza Avirus, influenza B virus and/or RSV infectionand should not be used as the sole basis for treatment orother patient management decisions. Negative results must becombined with clinical observations, patient history, andepidemiological information.This test has not been evaluated for monitoring treatment ofinfection.This test has been authorized by the FDA under an EmergencyUse Authorization (EUA) for use by authorized laboratories.Testing performed on the [employer] GeneXpert utilizingreal-time RT-PCR.All SARS CoV2 and positive influenza A/B results arereported to [facility]. 03/22/2025 1:35 PM EDT 03/22/2025 1:44 PM EDT us Generic External Data Provider LAB MICROBIOLOGY - GENERAL ORDERABLES Final Result [facility] [address] [place] [address] [phone] * (ABNORMAL) CBC auto differential (03/22/2025 1:35 PM EDT) White Blood Count 8.7 4.8 - 10.8 X10*3/uL [facility] Red Blood Count 4.83 4.60 - 5.80 X10*6/uL [facility] Hemoglobin 14.5 14.0 - 18.0 g/dl [facility] Hematocrit 41.6(L) 42.0 - 52.0 % [facility] Mean Corpuscular Volume 86.1 80.0 - 98.0 fL [facility] Mean Corpuscular Hemoglobin 30.0 27.0 - 33.0 pg [facility] Mean Corpuscular HGB Conc 34.9 31.0 - 36.0 g/dl [facility] Red Cell Distribution Width 12.7 11.0 - 16.0 % [facility] Platelet Count 328 160 - 400 X10*3/uL [facility] Mean Platelet Volume 9.7 9.4 - 12.4 fL [facility] Neutrophils Percent Auto 57.9 45 - 73 % [facility] Imm Gran Pct Auto 0.6(H) 0.0 - 0.4 % [facility] Lymphocytes Percent Auto 31.6 20 - 40 % [facility] Monocytes Percent Auto 8.2 2 - 11 % [facility] Eosinophils Percent Auto 1.4 0 - 4 % [facility] Basophils Percent Auto 0.3 0 - 2 % [facility] NRBC Pct Auto 0.0 0.0 - 0.2 /100WBC [facility] Neutrophils Absolute Auto 5.0 2.0 - 8.3 x10*3/uL [facility] Imm Gran Abs Auto 0.05(H) 0.00 - 0.03 X10*3/uL [facility] Lymphocytes Absolute Auto 2.7 1.2 - 4.9 X10*3/uL [facility] Monocytes Absolute Auto 0.7 0.1 - 1.2 X10*3/uL [facility] Eosinophils Absolute Auto 0.1 0.0 - 0.4 X10*3/uL [facility] Basophils Absolute Auto 0.0 0.0 - 0.2 X10*3/uL [facility] NRBC Abs Auto 0.000 0.0 - 0.012 X10*3/uL [facility] 03/22/2025 1:35 PM EDT 03/22/2025 1:44 PM EDT Generic External Data Provider LAB BLOOD ORDERAB LES Final Result Performing Organization Address City/[facility]/ZIP Co de Phone Number [facility] [address] [place] [address] [phone] * Magnesium (03/22/2025 1:35 PM EDT) Pathologist [facility] Magnesium 2.0 1.6 - 2.6 mg/dL [facility] 03/22/2025 1:35 PM EDT 03/22/2025 1:44 PM EDT [employer] External Data Provider LAB BLOOD ORDERAB LES Final Result Performing Organization Address [facility]/ZIP Co de Phone Number [facility] [address] [place] [address] [phone] * Comprehensive Metabolic Panel (03/22/2025 1:35 PM EDT) Only the most recent of2 resultswithin the time period is included. Sodium 139 135 - 145 mmol/L [facility] Potassium 3.8 3.3 - 5.1 mmol/L [facility] Chloride 105 96 - 108 mmol/L [facility] Carbon Dioxide 25 22 - 29 mmol/L [facility] Anion Gap 13 12 - 20 [facility] Urea Nitrogen (BUN) 12 9 - 16 mg/dL [facility] Creatinine, Serum 0.77 0.5 - 1.4 mg/dL [facility] Creatinine Clr Calc Pharmacy 210.4 [facility] Comment:eGFR (calculated fro m the MDRD study equation) and eCrCl(calculated from the Cockcroft-Gault equation) are based ondifferent parameters and may not yield comparable results.If eCrCl result is absurd, please check patient'sheight/weight. Estimated Glomerular Filt Rate >60 [facility] Comment:Chronic Kidney Disea se: Estimated GFR < 60 mL/min/1.14e5Gbszgy Kidney Disease: Estimated GFR < 15 mL/min/1.73m2 Glucose 94 60 - 115 mg/dL [facility] Calcium 9.2 8.4 - 10.2 mg/dL [facility] Bilirubin, Total 1.0 0.0 - 1.0 mg/dL [facility] Aspartate Amino Transferase 27 5 - 37 U/L [facility] Alanine Aminotransferase 38 0 - 40 U/L [facility] Total Protein 7.7 6.5 - 8.0 g/dL [facility] Albumin Level 4.3 3.5 - 5.0 g/dL [facility] Alkaline Phosphatase 72 39 - 117 U/L [facility] 03/22/2025 1:35 PM EDT 03/22/2025 1:44 PM EDT us Generic External Data Provider LAB BLOOD ORDERAB LES Final Result Performing Organization Address [facility]/ZIP Co de Phone Number [facility] [address] [place] [phone] * Syphilis Screen (03/10/2025 10:43 AM EDT) Syphilis Screen Nonreactive Nonreactive [facility] Blood 03/10/2025 10:4 3 AM EDT 03/10/2025 11:22 AM EDT us Norma Sequeira MD LAB BLOOD ORDERAB LES Final Result [facility] [address] [place] [address] [phone] * (ABNORMAL) Vitamin D, 25-Hydroxy, Total, Immunoassay (03/10/2025 10:43 AM EDT) Vitamin D 25-OH Total 29.6(L) >30 ng/mL [facility] Comment: Health Based Reference Values*< 20 ng/mL [id number] ng/mL Insufficient> 30 ng/mL Sufficient*Reji MARSHALL. N Engl J Med. 2007;357:266-280There is no well-established upper level of normal vitamin Dlevels. Some laboratories use 50 ng/mL as an upper limit ofnormal. However, toxicity is patient-dependent and may occurat any level. Careful correlation with the patient'spresentation is necessary and, if there is concern forvitamin D toxicity, treatment should be consideredirrespective of the serum level.Care must be taken in interpreting Vitamin D results fromdifferent laboratories and methodologies. Published datademonstrated that results from patients undergoinghemodialysis may show a negative bias when tested withvarious automated 25-OH vitamin D assays when compared toLC-MS/MS.When testing samples from patients whose predominant form ofVitamin D is Vitamin D2, such as patients receiving VitaminD2 supplementation, results that are subtherapeutic shouldbe confirmed with another method such as LC-MS/MS. Blood Venous blood specimen / Unknown 03/10/2025 10:43 AM EDT 03/10/2025 11:22 AM EDT us Norma Sequeira MD LAB BLOOD ORDERAB LES Final Result [facility] [address] [place] [phone] [phone] * TSH with Reflex to Free T4 (03/10/2025 10:43 AM EDT) TSH reflex Free T4 1.70 0.32 - 4.0 uIU/mL [facility] Blood 03/10/2025 10:4 3 AM EDT 03/10/2025 11:22 AM EDT Norma Sequeira MD LAB BLOOD ORDERAB LES Final Result Performing Organization Address [facility] Co de Phone Number [facility] [address] [place] [phone] * Hepatitis C Antibody with Reflex to HCV, RNA, Quantitative, Real-Time PCR (03/10/2025 10:43 AM EDT) Pathologist [facility] Hepatitis C Antibody Nonreactive Nonreactive [facility] Comment:Antibodies to HCV no t detected; does not exclude early acuteHCV infection. Blood Venous blood specimen / Unknown 03/10/2025 10:43 AM EDT 03/10/2025 11:22 AM EDT Norma Sequeira MD LAB BLOOD ORDERAB LES Final Result Performing Organization Address [facility] Co de Phone Number [facility] [address] [place] [phone] * Chlamydia/N. Gonorrhoeae RNA, TMA, Urogenitial (03/10/2025 10:43 AM EDT) [facility] CT PCR NOT DETECTED Not Detect. [facility] Comment:A not detected test result does not exclude the possibilityof infection because test results can be affected byimproper specimen collection, concurrent antibiotic therapy,or the number of organisms in the specimen which may bebelow the sensitivity of the test. As with many diagnostictests, results from the Xpert CT/NG assay should beinterpreted in conjunction with other laboratory andclinical data available to the clinician.Xpert CT/NG performance has not been evaluated in patientsless than 14 years of age. The assay should not be used forthe evaluationof suspected sexual abuse or for other medico-legalindications. Additional testing is recommended in anycircumstance when false positive or false negative resultscould lead to adverse medical, social or psychologicalconsequences. NG PCR NOT DETECTED Not Detect. [facility] Comment:A not detected test result does not exclude the possibilityof infection because test results can be affected byimproper specimen collection, concurrent antibiotic therapy,or the number of organisms in the specimen which may bebelow the sensitivity of the test. As with many diagnostictests, results from the Xpert CT/NG assay should beinterpreted in conjunction with other laboratory andclinical data available to the clinician.Xpert CT/NG performance has not been evaluated in patientsless than 14 years of age. The assay should not be used forthe evaluationof suspected sexual abuse or for other medico-legalindications. Additional testing is recommended in anycircumstance when false positive or false negative resultscould lead to adverse medical, social or psychologicalconsequences. Urine (Urine, Random) 03/10/2025 10:43 AM EDT 03/10/2025 11:19 AM EDT Narrative [facility] - 03/10/2025 1:55 PM EDT Urine us Norma Sequeira MD LAB MICROBIOLOGY - GENERAL ORDERABLES Final Result Performing Organization Address City/[facility]/ZIP Co de Phone Number [facility] [address] [place] [phone] * Hepatitis B surface antigen, EIA (03/10/2025 10:43 AM EDT) Hepatitis B Surface Ag Negative Negative [facility] Blood Venous blood specimen / Unknown 03/10/2025 10:43 AM EDT 03/10/2025 11:22 AM EDT us Norma Sequeira MD LAB BLOOD ORDERAB LES Final Result Performing Organization Address City/[facility]/ZIP Co de Phone Number [facility] [address] [place] [phone] * Hepatitis B Core Antibody, Total (03/10/2025 10:43 AM EDT) Hepatitis B Core Antibody Nonreactive Nonreactive [facility] Blood Venous blood specimen / Unknown 03/10/2025 10:43 AM EDT 03/10/2025 11:22 AM EDT Norma Sequeira MD LAB BLOOD ORDERAB LES Final Result Performing Organization Address City/[facility]/ZIP Co de Phone Number [facility] [address] [place] [phone] [phone] * HIV-1/2 Antigen and Antibodies, Fourth Generation, with Reflexes (03/10/2025 10:43 AM EDT) Pathologist [facility] HIV AB/AG Nonreactive Nonreactive [facility] Comment:HIV-1 p24 Ag and/or HIV-1/HIV-2 Ab not detected.A test result that is nonreactive does not exclude thepossibility of exposure to or infection with HIV-1 and/orHIV-2. Nonreactive results in this assay for individualswith prior exposure to HIV-1 and/or HIV-2 may be due toantigen and antibody levels that are below the limit ofdetection of this assay.The [employer] HIV Ag/Ab Combo assay result andsupplemental assay results should be interpreted inconjunction with the patient's clinical presentation,history and other laboratory results. If the results areinconsistent with clinical evidence, additional testing issuggested to confirm the result. Blood Venous blood specimen / Unknown 03/10/2025 10:43 AM EDT 03/10/2025 11:22 AM EDT us Norma Sequeira MD LAB BLOOD ORDERAB LES Final Result Performing Organization Address City/[facility]/ZIP Co de Phone Number [facility] [address] [place] [address] [phone] * Hepatitis B Surface Antibody, Qualitative (03/10/2025 10:43 AM EDT) Pathologist [facility] ~Hepatitis B Surface Antibody NONREACTIVE Nonreactive [facility] Comment:Nonreactive: < 8.00 mIU/mL Blood Venous blood specimen / Unknown 03/10/2025 10:43 AM EDT 03/10/2025 11:22 AM EDT us Norma Sequeira MD LAB BLOOD ORDERAB LES Final Result Performing Organization Address City/[facility]/ZIP Co de Phone Number [facility] [address] [place] [phone] * (ABNORMAL) CBC (03/10/2025 10:43 AM EDT) White Blood Count 7.1 4.8 - 10.8 X10*3/uL [facility] Red Blood Count 4.69 4.60 - 5.80 X10*6/uL [facility] Hemoglobin 14.1 14.0 - 18.0 g/dl [facility] Hematocrit 41.2(L) 42.0 - 52.0 % [facility] Mean Corpuscular Volume 87.8 80.0 - 98.0 fL [facility] Mean Corpuscular Hemoglobin 30.1 27.0 - 33.0 pg [facility] Mean Corpuscular HGB Conc 34.2 31.0 - 36.0 g/dl [facility] Red Cell Distribution Width 12.9 11.0 - 16.0 % [facility] Platelet Count 329 160 - 400 X10*3/uL [facility] Mean Platelet Volume 10.4 9.4 - 12.4 fL [facility] NRBC Pct Auto 0.0 0.0 - 0.2 /100WBC [facility] NRBC Abs Auto 0.000 0.0 - 0.012 X10*3/uL [facility] Blood Venous blood specimen / Unknown 03/10/2025 10:43 AM EDT 03/10/2025 11:19 AM EDT us Norma Sequeira MD LAB BLOOD ORDERAB LES Final Result Performing Organization Address City/[facility]/ZIP Co de Phone Number [facility] [address] [place] [phone] * Hemoglobin A1c (03/10/2025 10:43 AM EDT) Hemoglobin A1c 5.2 <6.0 % [facility] Comment:Hemoglobin A1C Refer ence Range Adults: 4.8 - 6.0 % Non diabetic: < 6.0 % Goal: < 7.0 %Additional Action Suggested: > 8.0 %Note: Hemoglobin A1c results are invalid for patients with abnormal amounts of HbF. Blood transfusions may impact the HbA1c concentration in the patient sample. Estimated Average Glucose 103 mg/dL [facility] Comment:eAG = Estimated ave rage glucose which is %A1C expressed asaverage glucose, using the formula of the K7D-OlpfohaTymgcuq Glucose study (ADAG), Diabetes Care, Vol.31,#8,Apr. 2007 Blood Venous blood specimen / Unknown 03/10/2025 10:43 AM EDT 03/10/2025 11:19 AM EDT Norma Sequeira MD LAB BLOOD ORDERAB LES Final Result [facility] [address] [place] [phone] * (ABNORMAL) Lipid Panel, Standard (03/10/2025 10:43 AM EDT) Triglycerides 87 <150 mg/dL [facility] Comment:Desirable Triglyceri de: less than 150 mg/dLBorderline High Triglyceride 150-199 mg/dLHigh Triglyceride: 200-499 mg/dLVery High Triglyceride: greater than or equal to 5OO mg/dL Cholesterol 177 <200 mg/dL [facility] Comment:Desirable Cholestero l: less than 200 mg/dLBorderline High Cholesterol: 200-239 mg/dLHigh Cholesterol: greater than 239 mg/dL LDL Cholesterol Calculated 112(H) <100 mg/dL [facility] Comment:Desirable LDL: less than 100 mg/dLNear Optimal/Above Optimal LDL: 110- 129 mg/dLBorderline High LDL: 130-159 mg/dLHigh LDL: 160-189 mg/dLVery High LDL: greater than or equal to 190 mg/dL HDL Cholesterol 48 >40 mg/dL [facility] Comment:Desirable HDL: great er than 40 mg/dL Note: This HDL assay may give artificially low results in patients with liver disease. 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
== END 2025-05-14 11:37 | disposition home or self-care (01) ==
LOC: HO.HPS 10:44
PROVIDERS: PCP Nurse Practitioner Family; Visit Provider Internal Medicine
DX: E66.01 Morbid (severe) obesity due to excess calories (principal); G47.33 Obstructive sleep apnea (adult) (pediatric)
CPT/HCPCS: 99213

== ENCOUNTER → 2025-05-14 10:44 | Outpatient (BNVA) | payer MEDICAID, SELFPAY | PROVIDERS: PCP Nurse Practitioner Family; Visit Provider Internal Medicine | DX: E66.01 Morbid (severe) obesity due to excess calories (principal); G47.33 Obstructive sleep apnea (adult) (pediatric); Z99.89 Dependence on other enabling machines and devices | CPT/HCPCS: 99212 ==